=== PATIENT | male | born 1940 | race Caucasian/White ===

== ENCOUNTER → 2018-01-11 13:25 | Outpatient (POV) | payer MEDICARE, SELFPAY | PROVIDERS: Visit Provider Nurse Practitioner Acute Care | DX: Z00.00 Encounter for general adult medical examination without abnormal findings (principal) ==

== ENCOUNTER → 2018-01-14 14:56 | Outpatient (REF) | payer MEDICARE, SELFPAY | LOC: LAB 14:56 | PROVIDERS: Visit Provider Podiatrist | DX: B35.1 Tinea unguium (principal) | CPT/HCPCS: 87220 ==

== ENCOUNTER → 2018-01-15 17:13 | Outpatient (CLI) | payer MEDICARE, OTHER, SELFPAY ==
[2018-01-15] VITALS (12 sets, daily range): BP systolic 132–160; BP diastolic 75–87; PULSE 80–91; RESP 16–18; TEMP 36.3–37.3; O2SAT 94–96; BMI 19.9
[2018-01-15 22:54] LABS: Basophils % 0.3 % (0.1-2.0); Eosinophils % 0.7 % (0.1-12.0); Lymphocytes % 17.4 K/mm3 (10-50); Mean Platelet Volume 9.3 fl (7.4-10.4); Monocytes # 0.4 K/mm3 (0.1-1.0); Monocytes % 7.4 % (1.7-9.3); Neutrophils # 4.3 K/mm3 (1.8-7.8); Neutrophils % 74.3 % (37.0-80.0); Platelet Count 199 K/mm3 (142-424); Red Blood Count 2.89 M/mm3 (4.60-6.20); Red Cell Distribution Width 14.8 % (11.5-17.5); White Blood Count 5.8 K/mm3 (4.8-10.8)
[2018-01-15 22:56] LABS: Hematocrit 27.2 % (42.0-52.0)
[2018-01-15 23:04] LABS: Hemoglobin 9.2 g/dL (14.1-18.0)
== END ==
PROVIDERS: PCP Family Medicine; Visit Provider Family Medicine
DX: D50.9 Iron deficiency anemia, unspecified (principal); C34.91 Malignant neoplasm of unspecified part of right bronchus or lung; M05.79 Rheumatoid arthritis with rheumatoid factor of multiple sites without organ or systems involvement
CPT/HCPCS: 36415; 36430; 85014; 85018; 85025; 86850; P9016

== ENCOUNTER 2018-02-03 16:47 | Inpatient (IN) | payer MEDICARE, OTHER, SELFPAY ==
[2018-02-03 16:55] VITALS: BMI 18.4
--- NOTE | 2018-02-03 17:20 | XR_ITS ---
XR KUB CLINICAL INDICATION: ITS.REASON: abdominal pain ORDERING PHYSICIAN: Tyra Werner MD PATIENT AGE: 77 years COMPARISON: 09/02/2017 FINDINGS: Upright and supine views of the abdomen show gas loops of small and large bowel with scattered air-fluid levels. This is nonspecific and could be due to partial obstruction or ileus. There are multiple abdominal wall tacks. No acute bony anomalies. Atherosclerotic calcification is present in the aorta. There is chronic blunting of the right CP angle IMPRESSION: Abnormal bowel gas pattern consistent with either ileus or partial small bowel obstruction. Correlation with clinical parameters are needed
--- NOTE | 2018-02-03 17:25 | P.PN_ITS ---
Internal Medicine - PN: Subj *Date: 02/03/18 *Time: 17:22 Interval history: Mr. Ley is a 77yo male who presented to the office today with a 1 week history of abdominal pain, nausea, and decreased appetite. He had a low BP in the office and appeared dehydrated. He was admitted for rehydration, antiemetics, and a KUB. Exam I & O for Last 24 hours: Intake & Output 02/01/18 02/02/18 02/03/18 02/04/18 11:59 11:59 11:59 11:59 Weight 132 lb 6.4 oz - Constitutional Comments: Does not appear to feel well - *Routine Respiratory Exam Present: CTA bilaterally - *Routine Cardiovascular Exam Present: RRR - *Routine Abdominal Exam Present: soft, normoactive bowel sounds, tenderness (bilateral lower quadrants) - *Routine Extremities Exam Absent: edema Assessment and Plan (1) Hypotension Current visit: Yes Status: Acute Category: Medical Code(s): I95.9 - Hypotension, unspecified (2) Dehydration Current visit: Yes Status: Acute Category: Medical Code(s): E86.0 - Dehydration (3) Abdominal pain Current visit: Yes Status: Acute Category: Medical Code(s): R10.9 - Unspecified abdominal pain (4) Coronary arteriosclerosis Current visit: No Status: Chronic Category: Medical Code(s): I25.10 - Atherosclerotic heart disease of [place] coronary artery without angina pectoris (5) Hyperlipidemia Current visit: No Status: Chronic Qualifiers: Category: Medical Code(s): E78.5 - Hyperlipidemia, unspecified (6) Hypertensive heart disease Current visit: No Status: Chronic Qualifiers: Category: Medical Code(s): I11.9 - Hypertensive heart disease without heart failure (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
[2018-02-03 17:55] VITALS: BP 152/92; PULSE 85; RESP 18; TEMP 37; O2SAT 95
[2018-02-03 18:20] LABS: Basophils % 0.2 % (0.1-2.0); Eosinophils % 0.6 % (0.1-12.0); Hematocrit 32.9 % (42.0-52.0); Hemoglobin 10.3 g/dL (14.1-18.0); Lymphocytes # 0.8 K/mm3 (0.7-4.5); Lymphocytes % 10.9 K/mm3 (10-50); Mean Corpuscular HGB Conc 31.2 g/dL (31.8-35.4); Mean Corpuscular Hemoglobin 29.2 pg (27.0-31.2); Mean Corpuscular Volume 93.4 fl (80-94); Mean Platelet Volume 10.5 fl (7.4-10.4); Monocytes # 0.4 K/mm3 (0.1-1.0); Monocytes % 5.3 % (1.7-9.3); Neutrophils # 5.7 K/mm3 (1.8-7.8); Neutrophils % 82.9 % (37.0-80.0); Platelet Count 216 K/mm3 (142-424); Red Blood Count 3.52 M/mm3 (4.60-6.20); Red Cell Distribution Width 14.7 % (11.5-17.5); White Blood Count 6.9 K/mm3 (4.8-10.8)
[2018-02-03 18:32] LABS: Alanine Aminotransferase 11 U/L (12-78); Albumin Level 2.8 gm/dL (3.4-5.0); Albumin/Globulin Ratio 0.7 (1.1-1.8); Alkaline Phosphatase 108 U/L (46-116); Anion Gap 11.5 mEq/L (5-15); Aspartate Amino Transferase 10 U/L (15-37); Bilirubin,Total 0.7 mg/dL (0.2-1.0); Blood Urea Nitrogen 17 mg/dL (7-18); Carbon Dioxide 24 mmol/L (21.0-32.0); Chloride 94 mmol/L (98-107); Creatinine Clearance Estimated 33 mL/min (0-300); Creatinine,Serum 1.57 mg/dL (0.70-1.30); Estimated Glomerular Filt Rate 43 ml/min (>60); GFR (African American) 52 ML/MIN (>60); Globulin 3.9 gm/dl (1.3-3.2); Glucose 115 mg/dL (74-106); Potassium 4.5 mmoL/L (3.5-5.1); Sodium 125 mmol/L (136-145); Total Protein,Serum 6.7 gm/dL (6.4-8.2)
--- NOTE | 2018-02-03 19:01 | PC.NURSE ---
Report to be given to Karla Pierce RN
[2018-02-03 19:56] LABS: Microscopic, Urine URINE MICROSCOPIC (MICROSCOPIC)
[2018-02-03 20:00] VITALS: BP 137/85; PULSE 87; RESP 20; TEMP 37.1; O2SAT 96
[2018-02-03 20:05] LABS: Appearance,Urine CLEAR (Clear); Bilirubin,Urine Negative (Negative); Blood, Urine Negative (Negative); Color,Urine YELLOW (Yellow); Glucose,Urine (UA) Negative (Negative); Ketones,Urine Negative (Negative); Leukocyte Esterase,Urine Negative (Negative); Nitrate,Urine Negative (Negative); Protein,Urine Negative (Negative); Specific Gravity, Urine 1.015 (1.005-1.030); Urobilinogen,Urine 0.2 EU/dl (0.2)
[2018-02-03 20:26] VITALS: BMI 18.5
--- NOTE | 2018-02-03 21:01 | PC.NURSE ---
PT REFUSED ADMINISTRATION OF POTASSIUM, PT STATES I ONLY TAKE IT IN THE MORNING. WHAT IS MY POTASSIUM LEVEL RN EDUCATED PT THAT POTASSIUM LEVEL IS 4.5 AND WNL. PT STATED IF IS NORMAL, I WON'T TAKE IT TONIGHT, WE WILL SEE IN THE MORNING IF I SHOULD TAKE IT OR NOT. I WANT TO KEEP IT ON MY NORMAL SCHEDULE.
[2018-02-03 22:29] LABS: Bacteria,Urine Trace /lpf; Hyaline Casts,Urine Occasional #/lpf (0); Squamous Epithelial Cell,Urine Occasional #/hpf (0-5); WBC,Urine Occasional #/hpf (0-3)
--- NOTE | 2018-02-04 04:26 | PC.NURSE ---
NO COMPLAINTS STATED THIS SHIFT. RESTED WELL. TOLERATED CLEAR LIQUID DIET WELL. PT STATES I FEEL SO MUCH BETTER THAN WHEN I FIRST COME IN. VSS. WILL CONTINUE TO MONITOR.
[2018-02-04 05:18] VITALS: BP 159/90; PULSE 100; RESP 18; TEMP 36.6; O2SAT 94
[2018-02-04 06:59] LABS: Basophils % 0.2 % (0.1-2.0); Eosinophils # 0.1 K/mm3 (0.0-0.4); Hematocrit 28.4 % (42.0-52.0); Lymphocytes # 0.9 K/mm3 (0.7-4.5); Lymphocytes % 17.6 K/mm3 (10-50); Mean Corpuscular HGB Conc 31.2 g/dL (31.8-35.4); Mean Corpuscular Hemoglobin 29.4 pg (27.0-31.2); Mean Corpuscular Volume 94.2 fl (80-94); Mean Platelet Volume 9.9 fl (7.4-10.4); Monocytes # 0.4 K/mm3 (0.1-1.0); Neutrophils # 3.7 K/mm3 (1.8-7.8); Neutrophils % 74.1 % (37.0-80.0); Platelet Count 173 K/mm3 (142-424); Red Blood Count 3.01 M/mm3 (4.60-6.20); Red Cell Distribution Width 14.8 % (11.5-17.5)
[2018-02-04 07:14] LABS: Anion Gap 9.9 mEq/L (5-15); Blood Urea Nitrogen 13 mg/dL (7-18); Carbon Dioxide 24 mmol/L (21.0-32.0); Chloride 105 mmol/L (98-107); Creatinine Clearance Estimated 41 mL/min (0-300); Creatinine,Serum 1.25 mg/dL (0.70-1.30); Estimated Glomerular Filt Rate 56 ml/min (>60); GFR (African American) 68 ML/MIN (>60); Glucose 85 mg/dL (74-106); Potassium 3.9 mmoL/L (3.5-5.1); Sodium 135 mmol/L (136-145)
--- NOTE | 2018-02-04 07:23 | HMH.PHAVTE ---
[facility] VTE Monitoring - Patient Demographics Admission date: 02/03/18 Report Date: 02/04/18 Time: 07:24 Allergies/Adverse Reactions: Patient Allergies No Known Allergies Allergy (Verified 12/22/17 10:12) Height: 1.8 m Weight: 59.988 kg Patient Problems: Current Active Problems Hypotension (Acute) Dehydration (Acute) Abdominal pain (Acute) - VTE Risk Labs: VTE Related Lab Results Hgb 10.3 g/dL (14.1-18.0) L 02/03/18 18:10 Hct 28.4 % (42.0-52.0) L 02/04/18 06:30 Plt Count 173 K/mm3 (142-424) 02/04/18 06:30 BUN 13 mg/dL (7-18) 02/04/18 06:30 Creatinine 1.25 mg/dL (0.70-1.30) D 02/04/18 06:30 Estimated Creat Clear 41 mL/min (0-300) 02/04/18 06:30 Was VTE Risk Assessment Performed: Yes VTE Score: 4 VTE Risk Level: Low Risk - Prophylaxis VTE Prophylaxis Ordered?: Yes Types of VTE Prophylaxis: TEDS Knee High Location of Applied Device: Bilateral Lower Extremeties - VTE Diagnosis Confirmed Treatment or plan recommended: Continue Current Treatment
[2018-02-04 07:41] VITALS: BP 162/75; PULSE 109; RESP 20; TEMP 37.2; O2SAT 95
--- NOTE | 2018-02-04 08:19 | HMH.ACPN2 ---
Internal Medicine - PN: Subj *Date: 02/04/18 *Time: 08:19 Interval history: Patient states he feels much better today. He still has some lower abdominal pain. He urinated all night with the IV fluids. Weakness has improved. Exam Vital signs and Labs for Last 24 Hours: Temp Pulse Resp BP Pulse Ox 99.0 F 109 H 20 162/75 95 02/04/18 07:41 02/04/18 07:41 02/04/18 07:41 02/04/18 07:41 02/04/18 07:41 Laboratory Results - last 24 hr 02/03/18 18:10: WBC 6.9, RBC 3.52 L, Hgb 10.3 L, Hct 32.9 L, MCV 93.4, MCH 29.2, MCHC 31.2 L, RDW 14.7, Plt Count 216, MPV 10.5 H, Neut % (Auto) 82.9 H, Lymph % (Auto) 10.9, [place] % (Auto) 5.3, Eos % (Auto) 0.6, Baso % (Auto) 0.2, Neut # (Auto) 5.7, Lymph # (Auto) 0.8, [place] # (Auto) 0.4, Eos # (Auto) 0.0, Baso # (Auto) 0.0 02/03/18 18:10: Sodium 125 L, Potassium 4.5, Chloride 94 L, Carbon Dioxide 24, Anion Gap 11.5, BUN 17, Creatinine 1.57 H, Estimated Creat Clear 33, Estimated GFR 43 L, Est GFR ( Amer) 52 L, Glucose 115 H, Calcium 9.0, Total Bilirubin 0.7, AST 10 L, ALT 11 L, Alkaline Phosphatase 108, Total Protein 6.7, Albumin 2.8 L, Globulin 3.9 H, Albumin/Globulin Ratio 0.7 L 02/03/18 19:50: Urine Color Yellow, Urine Appearance Clear, Urine pH 6.0, Ur Specific [place] 1.015, Urine Protein Negative, Urine Glucose (UA) Negative, Urine Ketones Negative, Urine Blood Negative, Urine Nitrate Negative, Urine Bilirubin Negative, Urine Urobilinogen 0.2, Ur Leukocyte Esterase Negative, Urine RBC None, Urine WBC Occasional, Ur Squamous Epith Cells Occasional, Urine Bacteria Trace, Hyaline Casts Occasional 02/04/18 06:30: WBC 5.0 D, RBC 3.01 L, Hgb 9.0 L D, Hct 28.4 L, MCV 94.2 H, MCH 29.4, MCHC 31.2 L, RDW 14.8, Plt Count 173, MPV 9.9, Neut % (Auto) 74.1, Lymph % (Auto) 17.6, [place] % (Auto) 7.0, Eos % (Auto) 1.0, Baso % (Auto) 0.2, Neut # (Auto) 3.7, Lymph # (Auto) 0.9, [place] # (Auto) 0.4, Eos # (Auto) 0.1, Baso # (Auto) 0.0 02/04/18 06:30: Sodium 135 L, Potassium 3.9, Chloride 105, Carbon Dioxide 24, Anion Gap 9.9, BUN 13, Creatinine 1.25 D, Estimated Creat Clear 41, Estimated GFR 56 L, Est GFR ( Amer) 68 D, Glucose 85 D I & O for Last 24 hours: Intake & Output 02/01/18 02/02/18 02/03/18 02/04/18 11:59 11:59 11:59 11:59 Intake Total 2823 / 2823 Output Total 3150 / 3150 Balance -327 / -327 Weight 132 lb 4 oz Radiology Reports for the Last 24 Hours: KUB - Abnormal bowel gas pattern consistent with either ileus or partial small bowel obstruction. Correlation with clinical parameters are needed - Constitutional no acute distress - *Routine Respiratory Exam Present: CTA bilaterally - *Routine Cardiovascular Exam Present: RRR - *Routine Abdominal Exam Present: soft, normoactive bowel sounds, tenderness (lower abdomen) - *Routine Extremities Exam Absent: edema Assessment and Plan (1) Partial small bowel obstruction Current visit: Yes Status: Acute Category: Medical Code(s): K56.600 - Partial intestinal obstruction, unspecified as to cause (2) Hypotension Current visit: Yes Status: Acute Category: Medical Code(s): I95.9 - Hypotension, unspecified (3) Dehydration Current visit: Yes Status: Acute Category: Medical Code(s): E86.0 - Dehydration (4) Abdominal pain Current visit: Yes Status: Acute Category: Medical Code(s): R10.9 - Unspecified abdominal pain (5) Coronary arteriosclerosis Current visit: No Status: Chronic Category: Medical Code(s): I25.10 - Atherosclerotic heart disease of [place] coronary artery without angina pectoris (6) Hyperlipidemia Current visit: No Status: Chronic Qualifiers: Category: Medical Code(s): E78.5 - Hyperlipidemia, unspecified (7) Hypertensive heart disease Current visit: No Status: Chronic Qualifiers: Category: Medical Code(s): I11.9 - Hypertensive heart disease without heart failure (8) Malignant carcinoid tumor of lung Current visit: No Status
--- NOTE | 2018-02-04 08:22 | P.PN_ITS ---
Internal Medicine - PN: Subj *Date: 02/04/18 *Time: 08:19 Interval history: Patient states he feels much better today. He still has some lower abdominal pain. He urinated all night with the IV fluids. Weakness has improved. Exam Vital signs and Labs for Last 24 Hours: Temp Pulse Resp BP Pulse Ox 99.0 F 109 H 20 162/75 95 02/04/18 07:41 02/04/18 07:41 02/04/18 07:41 02/04/18 07:41 02/04/18 07:41 Laboratory Results - last 24 hr 02/03/18 18:10: WBC 6.9, RBC 3.52 L, Hgb 10.3 L, Hct 32.9 L, MCV 93.4, MCH 29.2 , MCHC 31.2 L, RDW 14.7, Plt Count 216, MPV 10.5 H, Neut % (Auto) 82.9 H, Lymph % (Auto) 10.9, [place] % (Auto) 5.3, Eos % (Auto) 0.6, Baso % (Auto) 0.2, Neut # ( Auto) 5.7, Lymph # (Auto) 0.8, [place] # (Auto) 0.4, Eos # (Auto) 0.0, Baso # (Auto ) 0.0 02/03/18 18:10: Sodium 125 L, Potassium 4.5, Chloride 94 L, Carbon Dioxide 24, Anion Gap 11.5, BUN 17, Creatinine 1.57 H, Estimated Creat Clear 33, Estimated GFR 43 L, Est GFR ( Amer) 52 L, Glucose 115 H, Calcium 9.0, Total Bilirubin 0.7, AST 10 L, ALT 11 L, Alkaline Phosphatase 108, Total Protein 6.7, Albumin 2.8 L, Globulin 3.9 H, Albumin/Globulin Ratio 0.7 L 02/03/18 19:50: Urine Color Yellow, Urine Appearance Clear, Urine pH 6.0, Ur Specific [place] 1.015, Urine Protein Negative, Urine Glucose (UA) Negative, Urine Ketones Negative, Urine Blood Negative, Urine Nitrate Negative, Urine Bilirubin Negative, Urine Urobilinogen 0.2, Ur Leukocyte Esterase Negative, Urine RBC None, Urine WBC Occasional, Ur Squamous Epith Cells Occasional, Urine Bacteria Trace, Hyaline Casts Occasional 02/04/18 06:30: WBC 5.0 D, RBC 3.01 L, Hgb 9.0 L D, Hct 28.4 L, MCV 94.2 H, MCH 29.4, MCHC 31.2 L, RDW 14.8, Plt Count 173, MPV 9.9, Neut % (Auto) 74.1, Lymph % (Auto) 17.6, [place] % (Auto) 7.0, Eos % (Auto) 1.0, Baso % (Auto) 0.2, Neut # (Auto) 3.7, Lymph # (Auto) 0.9, [place] # (Auto) 0.4, Eos # (Auto) 0.1, Baso # (Auto) 0.0 02/04/18 06:30: Sodium 135 L, Potassium 3.9, Chloride 105, Carbon Dioxide 24, Anion Gap 9.9, BUN 13, Creatinine 1.25 D, Estimated Creat Clear 41, Estimated GFR 56 L, Est GFR ( Amer) 68 D, Glucose 85 D I & O for Last 24 hours: Intake & Output 02/01/18 02/02/18 02/03/18 02/04/18 11:59 11:59 11:59 11:59 Intake Total 2823 / 2823 Output Total 3150 / 3150 Balance -327 / -327 Weight 132 lb 4 oz Radiology Reports for the Last 24 Hours: KUB - Abnormal bowel gas pattern consistent with either ileus or partial small bowel obstruction. Correlation with clinical parameters are needed - Constitutional no acute distress - *Routine Respiratory Exam Present: CTA bilaterally - *Routine Cardiovascular Exam Present: RRR - *Routine Abdominal Exam Present: soft, normoactive bowel sounds, tenderness (lower abdomen) - *Routine Extremities Exam Absent: edema Assessment and Plan (1) Partial small bowel obstruction Current visit: Yes Status: Acute Category: Medical Code(s): K56.600 - Partial intestinal obstruction, unspecified as to cause (2) Hypotension Current visit: Yes Status: Acute Category: Medical Code(s): I95.9 - Hypotension, unspecified (3) Dehydration Current visit: Yes Status: Acute Category: Medical Code(s): E86.0 - Dehydration (4) Abdominal pain Current visit: Yes Status: Acute Category: Medical Code(s): R10.9 - Unspecified abdominal pain (5) Coronary arteriosclerosis Current visit: No Status: Chronic Category: Medical Code(s): I25.10 - Atherosclero
[2018-02-04 12:48] LABS: Reticulocyte % (Auto) 1.2 % (0.9-3.2)
[2018-02-04 15:38] VITALS: BP 135/84; PULSE 90; RESP 18; TEMP 37.2; O2SAT 96
--- NOTE | 2018-02-04 16:03 | SW/DCPLANNER ---
Spoke with this patient this afternoon regarding discharge plans. Patient stated that he lives at home alone...still drives...and still cooks for himself. Patient stated that he did not feel as if he has any needs at this time. I will follow up with patient tomorrow to assist with any needs/new orders.
--- NOTE | 2018-02-04 19:30 | PC.NURSE ---
PATIENT HAS HAD DIARRHEA TODAY. PO POTASSIUM GIVEN THIS MORNING. PATIENT HAS TOLERATED CLEAR LIQUID DIET AND IS ASKING FOR MORE SOLID FOODS. VITAL SIGNS STABLE, WILL CONTINUE TO MONITOR, REPORT GIVEN TO MAURICIO JAUREGUI.
[2018-02-04 20:00] VITALS: BP 155/75; PULSE 61; RESP 18; TEMP 37.1; O2SAT 95
[2018-02-04 20:25] VITALS: O2SAT 95
--- NOTE | 2018-02-05 03:35 | PC.NURSE ---
no changes noted from previous assessment, pt has rested well this shift, pt c/o pain in the abdomen rating the pain 3/10, pt states gas pains were relieved, pt has had several episodes of diarrhea this shift, bowel sounds are active, breath sounds are clear to auscultation, no acute distress noted at this time, call light in reach, will continue to monitor.
[2018-02-05 04:00] VITALS: BP 166/91; PULSE 88; RESP 18; TEMP 37.1; O2SAT 94
[2018-02-05 07:46] VITALS: BP 139/83; PULSE 80; RESP 20; TEMP 36.6; O2SAT 96
--- NOTE | 2018-02-05 08:13 | XR_ITS ---
XR chest 2V COMPARISON: PA and lateral chest 04/29/2017 HISTORY: Rales TECHNIQUE: PA and lateral chest FINDINGS: Again noted is overall volume loss right hemithorax with prominent pleural and parenchymal scarring right middle lower chest. There was a cavitating lesion seen at adjacent to the chest wall on the previous study March 2017 which has shown interval resolution other than residual pleural and parenchymal scarring. There are somewhat more prominent irregular opacities at the right lung base than on the previous chest film possibly due to chronic scarring but it would be difficult to exclude superimposed acute infiltrate. The left lung mckenna well expanded and clear. There is aortic tortuosity but no cardiomegaly. There is a central line seen entering the right subclavian vein with the tip at the junction of the SVC with the right atrium. IMPRESSION: Prominent chronic pleural-parenchymal scarring right lower hemithorax, difficult to exclude a superimposed acute pneumonic infiltrate and possibly follow-up films will be helpful if symptoms persist
--- NOTE | 2018-02-05 08:13 | XR_ITS ---
XR KUB COMPARISON: KUB and upright abdomen 02/03/2018 HISTORY: Follow-up ileus versus early small bowel obstruction TECHNIQUE: KUB FINDINGS: There is increased amount of large and small bowel gas in a nonobstructive pattern showing slight interval improvement from the previous films of 02/03/2018. I believe this is most consistent with mild ileus. Is no evidence of free air. Again noted are the surgical sutures overlying the lower mid abdomen possibly from previous ventral hernia repair along with arteriosclerotic calcification of the abdominal aorta. IMPRESSION: Mildly abnormal gas pattern but showing interval improvement from the previous study likely due to a mild ileus
--- NOTE | 2018-02-05 08:17 | HMH.ACPN2 ---
<Jessie Adamson - Last Filed: 02/05/18 08:17> Internal Medicine - PN: Subj *Date: 02/05/18 *Time: 08:17 Interval history: Pt states he has a sore throat this am. He would like some Chloraseptic Welcome. He states he urinated and had diarrhea throughout the night. Has been tolerating clear liquids well. He has developed a cough. Exam Vital signs and Labs for Last 24 Hours: Temp Pulse Resp BP Pulse Ox 97.8 F 80 20 139/83 96 02/05/18 07:46 02/05/18 07:46 02/05/18 07:46 02/05/18 07:46 02/05/18 07:46 Laboratory Results - last 24 hr 02/04/18 10:48: Retic Count (auto) 1.2 I & O for Last 24 hours: Intake & Output 02/02/18 02/03/18 02/04/18 02/05/18 11:59 11:59 11:59 11:59 Intake Total 2823 / 2823 2810 / 2810 Output Total 3150 / 3150 1775 / 1775 Balance -327 / -327 1035 / 1035 Weight 132 lb 4 oz - Constitutional no acute distress - *Routine Respiratory Exam Present: rales (bilaterally) - *Routine Cardiovascular Exam Present: RRR - *Routine Abdominal Exam Present: soft, normoactive bowel sounds, tenderness (in the left lower abdomen - improved) - *Routine Extremities Exam Absent: edema Assessment and Plan (1) Partial small bowel obstruction Current visit: Yes Status: Acute Category: Medical Code(s): K56.600 - Partial intestinal obstruction, unspecified as to cause (2) Hypotension Current visit: Yes Status: Acute Category: Medical Code(s): I95.9 - Hypotension, unspecified (3) Dehydration Current visit: Yes Status: Acute Category: Medical Code(s): E86.0 - Dehydration (4) Abdominal pain Current visit: Yes Status: Acute Category: Medical Code(s): R10.9 - Unspecified abdominal pain (5) Coronary arteriosclerosis Current visit: No Status: Chronic Category: Medical Code(s): I25.10 - Atherosclerotic heart disease of [place] coronary artery without angina pectoris (6) Hyperlipidemia Current visit: No Status: Chronic Category: Medical Code(s): E78.5 - Hyperlipidemia, unspecified (7) Hypertensive heart disease Current visit: No Status: Chronic Category: Medical Code(s): I11.9 - Hypertensive heart disease without heart failure (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 Will get a chest x-ray due to rales in the lung bases and a repeat KUB to evaluate small bowel obstruction. <Cory Bueno - Last Filed: 02/05/18 08:33> Internal Medicine - PN: Subj *Date: 02/05/18 *Time: 08:32 Exam Vital signs and Labs for Last 24 Hours: Temp Pulse Resp BP Pulse Ox 97.8 F 80 20 139/83 96 02/05/18 07:46 02/05/18 07:46 02/05/18 07:46 02/05/18 07:46 02/05/18 07:46 Laboratory Results - last 24 hr 02/04/18 10:48: Retic Count (auto) 1.2 I & O for Last 24 hours: Intake & Output 02/02/18 02/03/18 02/04/18 02/05/18 11:59 11:59 11:59 11:59 Intake Total 2823 / 2823 2810 / 2810 Output Total 3150 / 3150 1775 / 1775 Balance -327 / -327 1035 / 1035 Weight 132 lb 4 oz Assessment and Plan (1) Partial small bowel obstruction Current visit: Yes Status: Acute Category: Medical Code(s): K56.600 - Partial intestinal obstruction, unspecified as to cause (2) Hypotension Current visit: Yes Status: Acute Category: Medical Code(s): I95.9 - Hypotension, unspecified (3) Dehydration Current visit: Yes Status: Acute Category: Medical Code(s): E86.0 - Dehydration (4) Abdominal pain Current visit: Yes Status: Acute Category: Medical Code(s): R10.9 - Unspecified abdom
[2018-02-05 12:41] VITALS: BMI 18.5
[2018-02-05 16:00] VITALS: BP 147/76; PULSE 83; RESP 20; TEMP 36.7; O2SAT 95
--- NOTE | 2018-02-05 18:17 | PC.NURSE ---
Pt has tolerated well this shift, VS stable. Pt's only complaint this shift was headache, MD notified and new order of acetaminophen 500mg PO q6 hours PRN was received. Pt was given a dose of acetaminophen and tolerated well, stating that he no longer had a headache on reassessment. Pt has had family at bedside this shift. Pt is in bed, call light within reach, will continue to monitor.
[2018-02-05 19:23] LABS: Vitamin B12 434 pg/mL (232-1245)
[2018-02-05 19:50] VITALS: BP 153/83; PULSE 78; RESP 18; TEMP 36.8; O2SAT 94
[2018-02-05 20:30] VITALS: O2SAT 94
[2018-02-06] VITALS: BP 149/83; PULSE 86; RESP 20; TEMP 37; O2SAT 94
--- NOTE | 2018-02-06 02:47 | PC.NURSE ---
no changes noted from previous assessment, pt has rested well this shift, pt c/o sore throat and a light non productive cough, chloraseptic spray alleviates symptoms, pt states diarrhea episodes decreased today, bowel sounds remain hyperactive, pt denies pain, breath sounds are clear to auscultation, no acute distress noted at this time, call light in reach, will continue to monitor.
--- NOTE | 2018-02-06 07:04 | PC.NURSE ---
report given to Tyler Treadwell RN
[2018-02-06 07:12] LABS: Basophils % 0.3 % (0.1-2.0); Eosinophils # 0.2 K/mm3 (0.0-0.4); Eosinophils % 3.2 % (0.1-12.0); Hematocrit 26.2 % (42.0-52.0); Hemoglobin 8.3 g/dL (14.1-18.0); Lymphocytes # 0.8 K/mm3 (0.7-4.5); Lymphocytes % 16.3 K/mm3 (10-50); Mean Corpuscular HGB Conc 31.8 g/dL (31.8-35.4); Mean Corpuscular Hemoglobin 29.7 pg (27.0-31.2); Mean Corpuscular Volume 93.5 fl (80-94); Mean Platelet Volume 9.7 fl (7.4-10.4); Monocytes # 0.3 K/mm3 (0.1-1.0); Monocytes % 5.6 % (1.7-9.3); Neutrophils # 3.5 K/mm3 (1.8-7.8); Neutrophils % 74.6 % (37.0-80.0); Platelet Count 157 K/mm3 (142-424); Red Cell Distribution Width 14.9 % (11.5-17.5); White Blood Count 4.7 K/mm3 (4.8-10.8)
[2018-02-06 07:17] LABS: Anion Gap 7.8 mEq/L (5-15); Blood Urea Nitrogen 9 mg/dL (7-18); Carbon Dioxide 26 mmol/L (21.0-32.0); Chloride 104 mmol/L (98-107); Creatinine Clearance Estimated 47 mL/min (0-300); Creatinine,Serum 1.09 mg/dL (0.70-1.30); Estimated Glomerular Filt Rate 65 ml/min (>60); GFR (African American) 79 ML/MIN (>60); Glucose 92 mg/dL (74-106); Potassium 3.8 mmoL/L (3.5-5.1); Sodium 134 mmol/L (136-145)
[2018-02-06 07:43] VITALS: BP 157/90; PULSE 96; RESP 20; TEMP 37.1; O2SAT 97
[2018-02-06 08:00] VITALS: O2SAT 97
--- NOTE | 2018-02-06 08:14 | HMH.ACPN2 ---
Internal Medicine - PN: Subj *Date: 02/06/18 *Time: 08:14 Interval history: Patient feels better today, slept well, ready to go home. Exam Vital signs and Labs for Last 24 Hours: Temp Pulse Resp BP Pulse Ox 98.7 F 96 H 20 157/90 97 02/06/18 07:43 02/06/18 07:43 02/06/18 07:43 02/06/18 07:43 02/06/18 07:43 Laboratory Results - last 24 hr 02/04/18 10:48: Vitamin B12 434 02/06/18 06:30: WBC 4.7 L, RBC 2.80 L, Hgb 8.3 L, Hct 26.2 L, MCV 93.5, MCH 29.7, MCHC 31.8, RDW 14.9, Plt Count 157, MPV 9.7, Neut % (Auto) 74.6, Lymph % (Auto) 16.3, [place] % (Auto) 5.6, Eos % (Auto) 3.2, Baso % (Auto) 0.3, Neut # (Auto) 3.5, Lymph # (Auto) 0.8, [place] # (Auto) 0.3, Eos # (Auto) 0.2, Baso # (Auto) 0.0 02/06/18 06:30: Sodium 134 L, Potassium 3.8, Chloride 104, Carbon Dioxide 26, Anion Gap 7.8, BUN 9 D, Creatinine 1.09, Estimated Creat Clear 47, Estimated GFR 65, Est GFR ( Amer) 79, Glucose 92 Vital Signs Temp Pulse Resp BP Pulse Ox 02/06/18 07:43 98.7 F 96 H 20 157/90 97 02/06/18 00:00 98.6 F 86 20 149/83 94 L 02/05/18 20:30 94 L 02/05/18 19:50 98.2 F 78 18 153/83 94 L 02/05/18 16:00 98.1 F 83 20 147/76 95 Intake and Output 02/05/18 02/06/18 02/06/18 19:59 03:59 11:59 Intake Total 1276 / 1276 Output Total 1000 / 1000 300 / 300 600 / 600 Balance 276 / 276 -300 / -300 -600 / -600 Intake: Intake, Oral Amount 600 / 600 Intake, Total IV Amount 676 / 676 0.9 % Sodium Chloride 1,000 ml 676 / 676 @ 75 mls/hr IV .[id number] [facility] Rx# :[id number] Output: Output, Urine Amount 1000 / 1000 300 / 300 600 / 600 Other: Number of Voids 5 Number of Bowel Movements 1 Weight 132 lb 4.014 oz Patient Weight 02/06/18 11:59 Weight 132 lb 4.014 oz I & O for Last 24 hours: Intake & Output 02/03/18 02/04/18 02/05/18 02/06/18 11:59 11:59 11:59 11:59 Intake Total 2823 / 2823 2810 / 2810 1276 / 1276 Output Total 3150 / 3150 1775 / 1775 1900 / 1900 Balance -327 / -327 1035 / 1035 -624 / -624 Weight 132 lb 4 oz 132 lb 4.014 oz - Constitutional no acute distress - *Routine HEENT Exam ENT: Present: mucous membranes moist - *Routine Respiratory Exam Present: CTA bilaterally - *Routine Cardiovascular Exam Present: RRR - *Routine Abdominal Exam Present: soft, normoactive bowel sounds. Absent: tenderness, distended - *Routine Extremities Exam Absent: cyanosis, clubbing, edema Assessment and Plan (1) Partial small bowel obstruction Current visit: Yes Status: Resolved Category: Medical Code(s): K56.600 - Partial intestinal obstruction, unspecified as to cause (2) Hypotension Current visit: Yes Status: Resolved Category: Medical Code(s): I95.9 - Hypotension, unspecified (3) Dehydration Current visit: Yes Status: Resolved Category: Medical Code(s): E86.0 - Dehydration (4) Abdominal pain Current visit: Yes Status: Resolved Category: Medical Code(s): R10.9 - Unspecified abdominal pain (5) Coronary arteriosclerosis Current visit: No Status: Chronic Category: Medical Code(s): I25.10 - Atherosclerotic heart disease of [place] coronary artery without angina pectoris (6) Hyperlipidemia Current visit: No Status: Chronic Qualifiers: Category: Medical Code(s): E78.5 - Hyperlipidemia, unspecified (7) Hypertensive heart disease Current visit: No Status: Chronic Qualifiers: Category: Medical Code(s): I11.9 - Hypertensive heart disease without heart failure (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
--- NOTE | 2018-02-06 08:18 | P.PN_ITS ---
Internal Medicine - PN: Subj *Date: 02/06/18 *Time: 08:14 Interval history: Patient feels better today, slept well, ready to go home. Exam Vital signs and Labs for Last 24 Hours: Temp Pulse Resp BP Pulse Ox 98.7 F 96 H 20 157/90 97 02/06/18 07:43 02/06/18 07:43 02/06/18 07:43 02/06/18 07:43 02/06/18 07:43 Laboratory Results - last 24 hr 02/04/18 10:48: Vitamin B12 434 02/06/18 06:30: WBC 4.7 L, RBC 2.80 L, Hgb 8.3 L, Hct 26.2 L, MCV 93.5, MCH 29.7 , MCHC 31.8, RDW 14.9, Plt Count 157, MPV 9.7, Neut % (Auto) 74.6, Lymph % (Auto ) 16.3, [place] % (Auto) 5.6, Eos % (Auto) 3.2, Baso % (Auto) 0.3, Neut # (Auto) 3.5, Lymph # (Auto) 0.8, [place] # (Auto) 0.3, Eos # (Auto) 0.2, Baso # (Auto) 0.0 02/06/18 06:30: Sodium 134 L, Potassium 3.8, Chloride 104, Carbon Dioxide 26, Anion Gap 7.8, BUN 9 D, Creatinine 1.09, Estimated Creat Clear 47, Estimated GFR 65, Est GFR ( Amer) 79, Glucose 92 Vital Signs Temp Pulse Resp BP Pulse Ox 02/06/18 07:43 98.7 F 96 H 20 157/90 97 02/06/18 00:00 98.6 F 86 20 149/83 94 L 02/05/18 20:30 94 L 02/05/18 19:50 98.2 F 78 18 153/83 94 L 02/05/18 16:00 98.1 F 83 20 147/76 95 Intake and Output 02/05/18 02/06/18 02/06/18 19:59 03:59 11:59 Intake Total 1276 / 1276 Output Total 1000 / 1000 300 / 300 600 / 600 Balance 276 / 276 -300 / -300 -600 / -600 Intake: Intake, Oral Amount 600 / 600 Intake, Total IV Amount 676 / 676 0.9 % Sodium Chloride 1,000 ml 676 / 676 @ 75 mls/hr IV .[id number] [facility] Rx# :[id number] Output: Output, Urine Amount 1000 / 1000 300 / 300 600 / 600 Other: Number of Voids 5 Number of Bowel Movements 1 Weight 132 lb 4.014 oz Patient Weight 02/06/18 11:59 Weight 132 lb 4.014 oz I & O for Last 24 hours: Intake & Output 02/03/18 02/04/18 02/05/18 02/06/18 11:59 11:59 11:59 11:59 Intake Total 2823 / 2823 2810 / 2810 1276 / 1276 Output Total 3150 / 3150 1775 / 1775 1900 / 1900 Balance -327 / -327 1035 / 1035 -624 / -624 Weight 132 lb 4 oz 132 lb 4.014 oz - Constitutional no acute distress - *Routine HEENT Exam ENT: Present: mucous membranes moist - *Routine Respiratory Exam Present: CTA bilaterally - *Routine Cardiovascular Exam Present: RRR - *Routine Abdominal Exam Present: soft, normoactive bowel sounds. Absent: tenderness, distended - *Routine Extremities Exam Absent: cyanosis, clubbing, edema Assessment and Plan (1) Partial small bowel obstruction Current visit: Yes Status: Resolved Category: Medical Code(s): K56.600 - Partial intestinal obstruction, unspecified as to cause (2) Hypotension Current visit: Yes Status: Resolved Category: Medical Code(s): I95.9 - Hypotension, unspecified (3) Dehydration Current visit: Yes Status: Resolved Category: Medical Code(s): E86.0 - Dehydration (4) Abdominal pain Current visit: Yes Status: Resolved Category: Medical Code(s): R10.9 - Unspecified abdominal pain (5) Coronary arteriosclerosis Current visit: No Status: Chronic Category: Medical Code(s): I25.10 - Atherosclerotic heart disease of [place] coronary artery without angina pect
--- NOTE | 2018-02-07 10:40 | HMH.DCSUM ---
General - General Admission date: 02/03/18 Discharge date: 02/06/18 HPI HPI: Mr. Ley is a 77yo male who presented to the office today with a 1 week history of abdominal pain, nausea, and decreased appetite. He had a low BP in the office and appeared dehydrated. He was admitted for rehydration, antiemetics, and a KUB. Hospital Course Hospital Course: He was admitted and started on IVF's and antiemetics. A KUB was ordered showing an ileus vs a partial small bowel obstruction. He was started on clear liquids. His dehydration improved with hydration. He did develop a cough and some rales in the lung bases. A repeat KUB as well as a CXR was ordered. His CXR showed prominent chronic pleural-parenchymal scarring in the right lower hemithorax. His KUB showed improvement in his bowel gas pattern. His diet was advanced. He tolerated this well. His H&H did drop and it was felt this was dilutional. He was stable to be discharged and will need close f/u in the office and a repeat H &H. Objective Vital signs: Temp Pulse Resp BP Pulse Ox 98.7 F 96 H 20 157/90 97 02/06/18 07:43 02/06/18 07:43 02/06/18 07:43 02/06/18 07:43 02/06/18 08:00 Narrative: - Constitutional Comments: Does not appear to feel well - *Routine Respiratory Exam Present: CTA bilaterally - *Routine Cardiovascular Exam Present: RRR - *Routine Abdominal Exam Present: soft, normoactive bowel sounds, tenderness (bilateral lower quadrants) - *Routine Extremities Exam Absent: edema DS: Diagnosis - Discharge Diagnosis (1) Partial small bowel obstruction Status: Resolved (2) Hypotension Status: Resolved (3) Dehydration Status: Resolved (4) Abdominal pain Status: Resolved (5) Coronary arteriosclerosis Status: Chronic (6) Hyperlipidemia Status: Chronic (7) Hypertensive heart disease Status: Chronic (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 (9) Rales Status: Resolved (10) Anemia Status: Acute Discharge Plan - Patient Discharge Instructions ACTIVITY: Continue current activity DIET: continue same diet Patient Instructions: High-Calorie, High-Protein Diet, DI for Dehydration -- Adult, DI for Abdominal Pain-Adult, DI for Hypotension - Follow up Plan Follow up with: Tyra Werner MD [Primary Care Provider] - 02/10/18 Disposition: Home, Self-Half-Way Medications: Home Medications Medication Instructions Recorded Confirmed Type cholecalciferol (vitamin D3) 1,000 1,000 unit PO DAILY 12/18/17 02/04/18 History unit capsule ferrous gluconate 324 mg (36 mg 324 mg PO BID tab 12/18/17 02/03/18 History iron) tablet fluticasone 50 mcg/actuation nasal 50 mcg INTRANASAL DAILY 12/18/17 02/04/18 History spray,suspension hydroxychloroquine 200 mg tablet 200 mg PO DAILY 12/18/17 02/04/18 History leflunomide 20 mg tablet 20 mg PO DAILY 12/18/17 02/04/18 History loratadine 10 mg capsule 10 mg PO DAILY 12/18/17 02/04/18 History megestrol 400 mg/10 mL (10 mL) 800 mg PO DAILY ml 12/18/17 02/04/18 History oral suspension metoprolol succinate ER 100 mg 100 mg PO DAILY tab 12/18/17 02/04/18 History tablet,extended release 24 hr omeprazole 20 mg capsule,delayed 20 mg PO BID 12/18/17 02/04/18 History release pravastatin 40 mg tablet 40 mg PO HS 12/18/17 02/04/18 History terazosin 5 mg capsule 5 mg PO HS 12/18/17 02/04/18 History aspirin 81 mg tablet,delayed 81 mg PO DAILY 12/22/17 02/04/18 History release Finasteride [Proscar 5mg Tablet] 5 mg PO HS 02/04/18 02/04/18 History Metoclopramide HCl [Reglan 5mg 5 mg PO TIDP PRN 02/04/18 02/04/18 History Tablet] Montelukast Sodium [Montelukast 10 mg PO HS 02/04/18 02/04/18 History 10mg Tab] Potassium Chloride [Pot Chlor 20 20 meq PO DAILY 02/04/18 02/04/18 History mEq Tab] dilTIAZem HCl [Cartia Xt] 120 mg PO DAILY 02/04/18 02/04/18 History Prescriptions/Medication Reconcil
--- NOTE | 2018-02-07 10:45 | P.DS_ITS ---
General - General Admission date: 02/03/18 Discharge date: 02/06/18 HPI HPI: Mr. Ley is a 77yo male who presented to the office today with a 1 week history of abdominal pain, nausea, and decreased appetite. He had a low BP in the office and appeared dehydrated. He was admitted for rehydration, antiemetics, and a KUB. Hospital Course Hospital Course: He was admitted and started on IVF's and antiemetics. A KUB was ordered showing an ileus vs a partial small bowel obstruction. He was started on clear liquids. His dehydration improved with hydration. He did develop a cough and some rales in the lung bases. A repeat KUB as well as a CXR was ordered. His CXR showed prominent chronic pleural-parenchymal scarring in the right lower hemithorax. His KUB showed improvement in his bowel gas pattern. His diet was advanced. He tolerated this well. His H&H did drop and it was felt this was dilutional. He was stable to be discharged and will need close f/u in the office and a repeat H &H. Objective Vital signs: Temp Pulse Resp BP Pulse Ox 98.7 F 96 H 20 157/90 97 02/06/18 07:43 02/06/18 07:43 02/06/18 07:43 02/06/18 07:43 02/06/18 08:00 Narrative: - Constitutional Comments: Does not appear to feel well - *Routine Respiratory Exam Present: CTA bilaterally - *Routine Cardiovascular Exam Present: RRR - *Routine Abdominal Exam Present: soft, normoactive bowel sounds, tenderness (bilateral lower quadrants) - *Routine Extremities Exam Absent: edema DS: Diagnosis - Discharge Diagnosis (1) Partial small bowel obstruction Status: Resolved (2) Hypotension Status: Resolved (3) Dehydration Status: Resolved (4) Abdominal pain Status: Resolved (5) Coronary arteriosclerosis Status: Chronic (6) Hyperlipidemia Status: Chronic (7) Hypertensive heart disease Status: Chronic (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 (9) Rales Status: Resolved (10) Anemia Status: Acute Discharge Plan - Patient Discharge Instructions ACTIVITY: Continue current activity DIET: continue same diet Patient Instructions: High-Calorie, High-Protein Diet, DI for Dehydration -- Adult, DI for Abdominal Pain-Adult, DI for Hypotension - Follow up Plan Follow up with: Tyra Werner MD [Primary Care Provider] - 02/10/18 Disposition: Home, Self-Senior Living Medications: Home Medications Medication Instructions Recorded Confirmed Type cholecalciferol (vitamin D3) 1,000 1,000 unit PO DAILY 12/18/17 02/04/18 History unit capsule ferrous gluconate 324 mg (36 mg 324 mg PO BID tab 12/18/17 02/03/18 History iron) tablet fluticasone 50 mcg/actuation nasal 50 mcg INTRANASAL DAILY 12/18/17 02/04/18 History spray,suspension hydroxychloroquine 200 mg tablet 200 mg PO DAILY 12/18/17 02/04/18 History leflunomide 20 mg tablet 20 mg PO DAILY 12/18/17 02/04/18 History loratadine 10 mg capsule 10 mg PO DAILY 12/18/17 02/04/18 History megestrol 400 mg/10 mL (10 mL) 800 mg PO DAILY ml 12/18/17 02/04/18 History oral suspension metoprolol succinate ER 100 mg 100 mg PO DAILY tab 12/18/17 02/04/18 History tablet,extended release 24 hr omeprazole 20 mg capsule,delayed 20 mg PO BID 12/18/17 02/04/18 History release pravasta
== END 2018-02-06 09:45 | disposition home or self-care (01) | DRG 390 ==
PROVIDERS: Family Medicine; Physician Assistant; Admitting Provider Family Medicine; PCP Family Medicine; Visit Provider Family Medicine
DX: K56.600 Partial intestinal obstruction, unspecified as to cause (principal); I95.9 Hypotension, unspecified; E86.0 Dehydration; I11.9 Hypertensive heart disease without heart failure; M06.9 Rheumatoid arthritis, unspecified; I25.10 Atherosclerotic heart disease of native coronary artery without angina pectoris; Z95.1 Presence of aortocoronary bypass graft; Q63.1 Lobulated, fused and horseshoe kidney; Z87.891 Personal history of nicotine dependence
CPT/HCPCS: 36415; 71046; 74018; 80048; 80053; 81001; 82607; 85025; 85044

== ENCOUNTER → 2018-02-10 12:11 | Outpatient (CLI) | payer MEDICARE, OTHER, SELFPAY ==
--- NOTE | 2018-02-10 14:15 | PC.NURSE ---
02/10/18 1245 Right portacath accessed for type and cross per lab request. Good blood return/flushes easily. Port accessed per sterile technique per protocol. Port flushed with saline/heparin instilled per protocol post lab draw. Port left accessed for pt to return to outpatient infusion tomorrow 02/11/18 for blood transfusion as ordered. Pt lm all well.
== END ==
PROVIDERS: Visit Provider Family Medicine
DX: D64.9 Anemia, unspecified (principal)
CPT/HCPCS: 36415; 86850

== ENCOUNTER 2018-02-11 08:25 | Outpatient (CLI) | payer MEDICARE, OTHER, SELFPAY ==
[2018-02-11] VITALS (18 sets, daily range): BP systolic 121–165; BP diastolic 60–86; PULSE 54–84; RESP 16–18; TEMP 36.3–36.8; O2SAT 97; BMI 19.5
--- NOTE | 2018-02-11 09:18 | PC.NURSE ---
0915 - INFUSION RATE AT 100 ML/HR AT THIS TIME.
--- NOTE | 2018-02-11 10:00 | PC.NURSE ---
0945 - INCREASED INFUSION RATE TO 150 ML/HR AT THIS TIME.
--- NOTE | 2018-02-11 10:24 | PC.NURSE ---
1015 - INCREASED RATE TO 200 ML/HR AT THIS TIME.
[2018-02-11 10:30] LABS: Hemoglobin 8.8 g/dL (14.1-18.0)
[2018-02-11 10:31] LABS: Hematocrit 27.9 % (42.0-52.0)
--- NOTE | 2018-02-11 11:13 | PC.NURSE ---
1045 - INCREASED RATE TO 250 ML/HR AT THIS TIME.
--- NOTE | 2018-02-11 11:49 | PC.NURSE ---
1142 - INFUSION RATE AT 100 ML/HR AT THIS TIME.
--- NOTE | 2018-02-11 12:25 | PC.NURSE ---
1212 - INCREASED RATE TO 150ML/HR AT THIS TIME.
--- NOTE | 2018-02-11 12:50 | PC.NURSE ---
1242 - INCREASED RATE TO 200 ML/HR AT THIS TIME.
[2018-02-11 14:59] LABS: Hematocrit 30.4 % (42.0-52.0); Hemoglobin 9.8 g/dL (14.1-18.0)
--- NOTE | 2018-02-11 15:25 | PC.NURSE ---
1430 - BLOOD DRAWN FROM PORT AT THIS TIME TO DRAW 1 HR POST HGB/HCT.
== END 2018-02-11 15:10 | disposition home or self-care (01) ==
LOC: INF 08:32
PROVIDERS: PCP Family Medicine; Visit Provider Family Medicine
DX: D64.9 Anemia, unspecified (principal)
CPT/HCPCS: 36430; 85014; 85018; J1642; P9016

== ENCOUNTER → 2018-03-08 11:21 | Outpatient (POV) | payer MEDICARE, SELFPAY | PROVIDERS: Visit Provider Nurse Practitioner Acute Care | DX: Z00.00 Encounter for general adult medical examination without abnormal findings (principal) ==

== ENCOUNTER 2018-03-17 14:03 | Inpatient (IN) ==
--- NOTE | 2018-03-17 14:36 | Emergency Department Note ---
ED Disposition Clinical Impression: Pneumonia Qualifiers: Pneumonia type: due to unspecified organism Laterality: bilateral Lung location : unspecified part of lung Qualified Code(s): J18.9 - Pneumonia, unspecified organism Abdominal pain Qualifiers: Abdominal location: generalized Qualified Code(s): R10.84 - Generalized abdominal pain Disposition: Still a Patient Condition on Discharge: Good Referrals: Wendy Willett DPM [Primary Care Provider] - - Critical Care Critical Care Time: No Attestation: On 03/17/18, the high probability of a clinically significant, sudden or life threatening deterioration of the following system(s) required my full and direct attention, intervention and personal management. The time I documented below is in addition to time spent performing reported procedures but includes the following listed in this critical care notation. Medical Decision Making - [place] Inquiry Pt receiving controlled substance: No Vital Signs: 03/17/18 14:18 Temperature 98.1 F Temperature Source Oral Pulse Rate [Right Brachial] 75 Respiratory Rate 18 Blood Pressure [Right Arm] 135/72 Blood Pressure Mean [Right Arm] 93 Blood Pressure Source [Right Arm] Automatic Cuff Blood Pressure Position [Right Arm] Sitting 02 Sat by Pulse Oximetry 98 Oxygen Delivery Method Room Air - Lab Data Lab Results 03/17/18 14:30: WBC 8.1, RBC 3.53 L, Hgb 10.7 L, Hct 32.1 L, MCV 91.1, MCH 30.3 , MCHC 33.3, RDW 15.0, Plt Count 244, MPV 9.5, Neut % (Auto) 81.4 H, Lymph % ( Auto) 11.8, [place] % (Auto) 5.9, Eos % (Auto) 0.6, Baso % (Auto) 0.3, Neut # (Auto ) 6.6, Lymph # (Auto) 0.9, [place] # (Auto) 0.5, Eos # (Auto) 0.1, Baso # (Auto) 0.0 03/17/18 14:30: Sodium 134 L, Potassium 3.7, Chloride 99, Carbon Dioxide 27, Anion Gap 11.7, BUN 16, Creatinine 1.16, Estimated Creat Clear 45, Estimated GFR 61, Est GFR ( Amer) 74, Glucose 96, Calcium 9.3, Total Bilirubin 1.1 H, AST 10 L, ALT 7 L, Alkaline Phosphatase 93, Total Protein 6.6, Albumin 2.3 L , Globulin 4.3 H, Albumin/Globulin Ratio 0.5 L, Lipase 51 L Result diagrams: 03/17/18 14:30 03/17/18 14:30 Orders (Tests/Meds): ORDERS Category Date Time Status Urinalysis and Microscopic Stat Lab 03/17/18 14:23 Ordered - Radiology Data #1 Image(s): Chest Image Reviewed: Yes I have reviewed radiologist's interpretation Bilateral pneumonia more extensive in the right lung with new areas of consolidation in the left upper lobe and left lower lobe. Chronic pleural thickening on the right with a prominent cavitation in the right upper lung zone laterally with focal nodularity along its lateral aspect. Fungal infection is a consideration versus cavitating neoplasm. Chest CT needed for further evaluation. - CT Data CT Scan: Abdomen, Pelvis Time Received: 16:[address] Reviewed: Yes: I have reviewed the patient's CT results, I have viewed the radiologist's interpretation Findings Narrative: Bilateral lower lobe pneumonia right more extensive than left with small loculated effusion on the right. No evidence of intestinal obstruction. Diverticulosis without diverticulitis. Horseshoe kidney. Obstruction. - ECG Data Tracing #1 EKG interpreted by Marcell Braswell MD: Rhythm: Atrial fibrillation Rate: 85 [place]: normal Ectopy: Premature ventricular contractions versus aberrantly conducted beats Conduction: normal ST Segment Changes: none T Wave Changes: Nonspecific Q Waves: none LVH No evidence of acute ischemia or injury Review of previous EKG shows that he had atrial fibrillation with rapid ventricular response on 08/21/17. Medical Decision Narrative: 5:00 PM: Discussed results with patient. He states has chronic cough, chronic shortness of breath since September, stable. Says that he has dyspnea on exertion, stable. No fevers documented, says he has chills. 5:08 PM: Discussed case with Dr. Bueno for Dr. Werner. He is somewhat familiar with the patient. He requests the patient be admitted on IV antibiotics for Dr. werner to see tomorrow. Magnesium citrate for constipation. General Adult HPI - General Chief complaint: Abdominal Pain Stated complaint: possibe bowel blockage Time Seen by Provider: 03/17/18 14:36 Mode of Arrival: Ambulatory Limitations: No Limitations Description of Symptoms (Recalled from ER Triage Doc. by RN): RULE OUT BOWEL OBSTRUCTION - History of Present Illness HPI narrative: 1 week history of abdominal pain that comes and goes. Has vomited once today. Has not had a good bowel movement in 2 days, says that he try to have bowel movement today and had 2 small tools. He also has pain in his lower back. No fever. He is concerned that he may have a bowel obstruction. He was admitted here with a bowel obstruction August 17 of last year until August 28 and had lysis of adhesions after failure of conservative treatment. He was also admitted February 03 - February 06 of this year for a partial small bowel obstruction. - Related Data Home Medications Medication Instructions Recorded Confirmed cholecalciferol (vitamin D3) 1,000 1,000 unit PO DAILY 12/18/17 02/11/18 unit capsule ferrous gluconate 324 mg (36 mg 324 mg PO BID tab 12/18/17 02/11/18 iron) tablet fluticasone 50 mcg/actuation nasal 50 mcg INTRANASAL DAILY 12/18/17 02/11/18 spray,suspension hydroxychloroquine 200 mg tablet 200 mg PO DAILY 12/18/17 02/11/18 leflunomide 20 mg tablet 20 mg PO DAILY 12/18/17 02/11/18 loratadine 10 mg capsule 10 mg PO DAILY 12/18/17 02/11/18 megestrol 400 mg/10 mL (10 mL) 800 mg PO DAILY ml 12/18/17 02/11/18 oral suspension metoprolol succinate ER 100 mg 100 mg PO DAILY tab 12/18/17 02/11/18 tablet,extended release 24 hr omeprazole 20 mg capsule,delayed 20 mg PO BID 12/18/17 02/11/18 release pravastatin 40 mg tablet 40 mg PO HS 12/18/17 02/11/18 terazosin 5 mg capsule 5 mg PO HS 12/18/17 02/11/18 aspirin 81 mg tablet,delayed 81 mg PO DAILY 12/22/17 02/11/18 release Finasteride [Proscar 5mg Tablet] 5 mg PO HS 02/04/18 02/11/18 Metoclopramide HCl [Reglan 5mg 5 mg PO TIDP PRN 02/04/18 02/11/18 Tablet] Montelukast Sodium [Montelukast 10 mg PO HS 02/04/18 02/11/18 10mg Tab] Potassium Chloride [Pot Chlor 20 20 meq PO DAILY 02/04/18 02/11/18 mEq Tab] dilTIAZem HCl [Cartia Xt] 120 mg PO DAILY 02/04/18 02/11/18 prednisone 5 mg tablet PO 15 Days 03/15/18 Allergies Allergy/AdvReac Type Severity Reaction Status Date / Time No Known Allergies Allergy Verified 03/15/18 14:48 [facility] History I have reviewed the patient's past medical history: Yes Medical History: Reports:: Cancer, Coronary Artery Disease, Hyperlipidemia, Hypertension, Myocardial Infarction, Palpitations Denies:: Diabetes Mellitus Type 1, Diabetes Mellitus Type 2, MRSA Other Medical History: Reports: Arthritis (RA), Cataracts, Chemotherapy, Radiation Therapy, Sinus Problems Laterality Cases: Bilateral: Tonsillectomy Other Surgeries: Yes: Angioplasty, CABG, Cancer Surgery, Cardiac Catheterization , Colonoscopy, EGD, Hernia Repair, Other Amputation: No Fractures: Yes ((L) humerus) Comment: Daughter 42 yo PA. Father 49 PA. Son 43 CABG - Social History Educational Level: Completed High School Smoking Status: Former smoker Alcohol Intake: never Alcohol Intake Frequency:: other Occupational Status: retired Housing: house Household Members: none - Psychiatric History Expresses thoughts of harming self/others: None Suicide Plan Description: No Plan Family Hx:: Coronary Artery Disease, Heart Attack, Hyperlipidemia, Hypertension ROS Obtained: Yes All systems reviewed & no additional complaints - Constitutional Constitutional: Denies fever(s) - Cardiovascular Cardiovascular: Denies chest pain - Respiratory Respiratory: No dyspnea - Gastrointestinal Gastrointestingal: Reports: abdominal pain, constipation, vomiting - Genitourinary Male Genitourinary: Denies difficulty urinating - Musculoskeletal Musculoskeletal: Reports back pain Physical Exam - General General appearance: alert, in no apparent distress - Head Head exam: atraumatic, normocephalic, normal inspection - Eye Eye exam: Present: normal appearance, PERRL, EOMI - ENT ENT exam: Present: normal exam, normal oropharynx, mucous membranes moist, TM's normal bilaterally, normal external ear exam - Neck Neck exam: Present: normal inspection, full ROM, trachea midline. Absent: meningismus, lymphadenopathy - Chest Chest inspection: Present: normal inspection, symmetric chest wall rise. Absent : tenderness - Respiratory Respiratory exam: Present: normal lung sounds bilaterally. Absent: respiratory distress - Cardiovascular Cardiovascular exam: Present: regular rate, irregular rhythm. Absent: JVD - Abdominal Exam Abdominal exam: Present: soft, tenderness, normal bowel sounds. Absent: distention, guarding, rebound, rigidity Abdominal tenderness: Present: RUQ, LUQ, epigastrium - Extremities Exam Extremities exam: Present: normal inspection, full ROM, normal capillary refill. Absent: calf tenderness - Back Exam Back exam: Present: normal inspection, CVA tenderness (R), CVA tenderness (L) - Neurological Exam Neurological exam: Present: alert, oriented X3 - Psychiatric Psychiatric exam: Present: normal affect, normal mood - Skin Skin exam: Present: warm, dry, intact, normal color - Lymphatic Lymphatic Findings: no adenopathy
[2018-03-17 14:42] LABS: Hematocrit 32.1 % (42.0-52.0); Hemoglobin 10.7 g/dL (14.1-18.0); Red Blood Count 3.53 M/mm3 (4.60-6.20); White Blood Count 8.1 K/mm3 (4.8-10.8)
[2018-03-17 14:43] LABS: Lymphocytes % 11.8 K/mm3 (10-50); Mean Corpuscular HGB Conc 33.3 g/dL (31.8-35.4); Mean Corpuscular Hemoglobin 30.3 pg (27.0-31.2); Mean Corpuscular Volume 91.1 fl (80-94); Mean Platelet Volume 9.5 fl (7.4-10.4); Monocytes % 5.9 % (1.7-9.3); Neutrophils % 81.4 % (37.0-80.0); Platelet Count 244 K/mm3 (142-424)
[2018-03-17 14:44] LABS: Basophils % 0.3 % (0.1-2.0); Eosinophils # 0.1 K/mm3 (0.0-0.4); Eosinophils % 0.6 % (0.1-12.0); Lymphocytes # 0.9 K/mm3 (0.7-4.5); Monocytes # 0.5 K/mm3 (0.1-1.0); Neutrophils # 6.6 K/mm3 (1.8-7.8)
[2018-03-17 14:52] LABS: Albumin Level 2.3 gm/dL (3.4-5.0); Albumin/Globulin Ratio 0.5 (1.1-1.8); Anion Gap 11.7 mEq/L (5-15); Bilirubin,Total 1.1 mg/dL (0.2-1.0); Calcium 9.3 mg/dL (8.5-10.1); Globulin 4.3 gm/dl (1.3-3.2); Potassium 3.7 mmoL/L (3.5-5.1); Total Protein,Serum 6.6 gm/dL (6.4-8.2)
--- NOTE | 2018-03-17 18:02 | History & Physical Report ---
*Admission Date: 03/17/18 *Chief complaint: abdominal pain, vomiting, cough *History of present illness: Mr. Ley is a 77yo male with a hx of a SBO in January when he was admitted. He states he has been constipated for the past few days and began having abdominal pain and vomited once. He was scared he might have another partial SBO, so he presented to the ER. A CXR and CT of the abdomen and pelvis revealed a bilateral pneumonia rather than a bowel obstruction. He does state he has had a dry cough for quite a while and has been getting more SOA. He will be admitted for hydration and IV abx. [facility] History Medical History: Reports:: Cancer, Coronary Artery Disease, Hyperlipidemia, Hypertension, Myocardial Infarction, Palpitations Denies:: Diabetes Mellitus Type 1, Diabetes Mellitus Type 2, MRSA Other Medical History: Reports: Arthritis (RA), Cataracts, Chemotherapy, Radiation Therapy, Sinus Problems Laterality Cases: Bilateral: Tonsillectomy Other Surgeries: Yes: Angioplasty, CABG, Cancer Surgery, Cardiac Catheterization , Colonoscopy, EGD, Hernia Repair, Other Amputation: No Fractures: Yes ((L) humerus) - *Social History Educational Level: Completed High School Smoking Status: Former smoker Alcohol Intake: never Alcohol Intake Frequency:: other Occupational Status: retired Housing: house Household Members: none - Psychiatric History Expresses thoughts of harming self/others: None Suicide Plan Description: No Plan *Family Hx:: Coronary Artery Disease, Heart Attack, Hyperlipidemia, Hypertension Review of Systems - Constitutional Reports chills, Reports fatigue, Reports fever(s), Reports weakness - Eyes Denies blurry vision, Denies double vision - ENT Denies nasal congestion, Denies sore throat - *Cardiovascular Denies chest pain, Denies fast heart rate - *Respiratory Reports cough, Reports shortness of breath, Denies wheezing - *Gastrointestinal Reports abdominal pain, Reports constipation, Reports nausea, Reports vomiting, Denies loose stools - *Genitourinary Denies difficulty urinating, Denies painful urination - *Musculoskeletal Reports back pain, Reports body aches - *Neurologic Reports weakness, Denies dizziness Meds Home Medications Medication Instructions Recorded Confirmed Type cholecalciferol (vitamin D3) 1,000 1,000 unit PO DAILY 12/18/17 03/17/18 History unit capsule ferrous gluconate 324 mg (36 mg 324 mg PO BID tab 12/18/17 03/17/18 History iron) tablet fluticasone 50 mcg/actuation nasal 50 mcg INTRANASAL DAILY 12/18/17 03/17/18 History spray,suspension hydroxychloroquine 200 mg tablet 200 mg PO DAILY 12/18/17 03/17/18 History leflunomide 20 mg tablet 20 mg PO DAILY 12/18/17 03/17/18 History loratadine 10 mg capsule 10 mg PO DAILY 12/18/17 03/17/18 History megestrol 400 mg/10 mL (10 mL) 800 mg PO DAILY ml 12/18/17 03/17/18 History oral suspension metoprolol succinate ER 100 mg 100 mg PO DAILY tab 12/18/17 03/17/18 History tablet,extended release 24 hr omeprazole 20 mg capsule,delayed 20 mg PO BID 12/18/17 03/17/18 History release pravastatin 40 mg tablet 40 mg PO HS 12/18/17 03/17/18 History terazosin 5 mg capsule 5 mg PO HS 12/18/17 03/17/18 History aspirin 81 mg tablet,delayed 81 mg PO DAILY 12/22/17 03/17/18 History release Finasteride [Proscar 5mg Tablet] 5 mg PO HS 02/04/18 03/17/18 History Metoclopramide HCl [Reglan 5mg 5 mg PO TIDP PRN 02/04/18 03/17/18 History Tablet] Montelukast Sodium [Montelukast 10 mg PO HS 02/04/18 03/17/18 History 10mg Tab] Potassium Chloride [Pot Chlor 20 20 meq PO DAILY 02/04/18 03/17/18 History mEq Tab] dilTIAZem HCl [Cartia Xt] 120 mg PO DAILY 02/04/18 03/17/18 History prednisone 5 mg tablet 5 mg PO DAILY 15 Days 03/15/18 03/17/18 History Allergies Allergy/AdvReac Type Severity Reaction Status Date / Time No Known Allergies Allergy Verified 03/15/18 14:48 Exam Vital signs and Labs for Last 24 Hours: Temp Pulse Resp BP Pulse Ox 98.1 F 75 18 135/72 98 03/17/18 14:18 03/17/18 14:18 03/17/18 14:18 03/17/18 14:18 03/17/18 14:18 Laboratory Results - last 24 hr 03/17/18 14:30: WBC 8.1, RBC 3.53 L, Hgb 10.7 L, Hct 32.1 L, MCV 91.1, MCH 30.3 , MCHC 33.3, RDW 15.0, Plt Count 244, MPV 9.5, Neut % (Auto) 81.4 H, Lymph % ( Auto) 11.8, [place] % (Auto) 5.9, Eos % (Auto) 0.6, Baso % (Auto) 0.3, Neut # (Auto ) 6.6, Lymph # (Auto) 0.9, [place] # (Auto) 0.5, Eos # (Auto) 0.1, Baso # (Auto) 0.0 03/17/18 14:30: Sodium 134 L, Potassium 3.7, Chloride 99, Carbon Dioxide 27, Anion Gap 11.7, BUN 16, Creatinine 1.16, Estimated Creat Clear 45, Estimated GFR 61, Est GFR ( Amer) 74, Glucose 96, Calcium 9.3, Total Bilirubin 1.1 H, AST 10 L, ALT 7 L, Alkaline Phosphatase 93, Total Protein 6.6, Albumin 2.3 L , Globulin 4.3 H, Albumin/Globulin Ratio 0.5 L, Lipase 51 L I & O for Last 24 hours: Intake & Output 03/15/18 03/16/18 03/17/18 03/18/18 11:59 11:59 11:59 11:59 Weight 135 lb - Constitutional Comments: Does not appear to feel well - *Routine HEENT Exam Head: Present: normocephalic, atraumatic Eye: Present: EOMI, PERRL ENT: Present: mucous membranes dry - *Routine Neck Exam Present: supple, full ROM - *Routine Respiratory Exam Present: crackles (bilateral bases but worse on the right) - *Routine Cardiovascular Exam Present: RRR (with frequent ectopics) - *Routine Abdominal Exam Present: soft, normoactive bowel sounds, tenderness (in the epigastric areas, small nodules palpable in the epigastric area and just above the umbilicus) - *Routine Extremities Exam Absent: edema - *Routine Skin Exam Present: pallor - *Routine Neurological Exam Present: alert, oriented X3 H&P: Result - Labs Labs: - Impressions CT abd/pelvis 1. Bilateral lower lobe pneumonia right more extensive than left with small loculated effusion on the right. 2. No evidence of intestinal obstruction. 3. Diverticulosis. No evidence of diverticulitis. 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 Bilateral pneumonia more extensive in the right lung with new areas of consolidation in the left upper lobe and left lower lobe. 2. Chronic pleural thickening on the right with a prominent cavitation in the right upper lung zone laterally with focal nodularity along its lateral aspect. A fungal infection is a consideration versus cavitating neoplasm. Chest CT needed for further evaluation. Assessment and Plan (1) Pneumonia Current visit: Yes Status: Acute Qualifiers: Pneumonia type: due to unspecified organism Laterality: bilateral Lung location: unspecified part of lung Qualified Code(s): J18.9 - Pneumonia, unspecified organism Category: Medical Code(s): J18.9 - Pneumonia, unspecified organism (2) Cavitary lesion of lung Current visit: Yes Status: Acute Category: Medical Code(s): J98.4 - Other disorders of lung (3) Abdominal pain Current visit: Yes Status: Acute Qualifiers: Abdominal location: generalized Qualified Code(s): R10.84 - Generalized abdominal pain Category: Medical Code(s): R10.9 - Unspecified abdominal pain (4) Anemia Current visit: No Status: Chronic Category: Medical Code(s): D64.9 - Anemia, unspecified (5) Coronary arteriosclerosis Current visit: No Status: Chronic Category: Medical Code(s): I25.10 - Atherosclerotic heart disease of [place] coronary artery without angina pectoris (6) Hyperlipidemia Current visit: No Status: Chronic Qualifiers: Category: Medical Code(s): E78.5 - Hyperlipidemia, unspecified (7) Hypertensive heart disease Current visit: No Status: Chronic Qualifiers: Category: Medical Code(s): I11.9 - Hypertensive heart disease without heart failure (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 He will be started on IVF's and abx. Will discuss the need for a chest CT with Dr. Werner.
[2018-03-18 02:05] LABS: Microscopic, Urine URINE MICROSCOPIC (MICROSCOPIC)
[2018-03-18 02:07] LABS: Appearance,Urine CLEAR (Clear); Bilirubin,Urine Negative (Negative); Blood, Urine Negative (Negative); Color,Urine YELLOW (Yellow); Glucose,Urine (UA) Negative (Negative); Ketones,Urine TRACE (Negative); Leukocyte Esterase,Urine Negative (Negative); PH,Urine 5.5 (5.0-8.5); Protein,Urine Negative (Negative); Specific Gravity, Urine 1.025 (1.005-1.030); Urobilinogen,Urine 0.2 EU/dl (0.2)
[2018-03-18 02:21] LABS: Bacteria,Urine 1+ /lpf; Mucus,Urine 1+ /lpf
[2018-03-18 06:09] LABS: Basophils % 0.4 % (0.1-2.0); Eosinophils # 0.1 K/mm3 (0.0-0.4); Eosinophils % 0.8 % (0.1-12.0); Hematocrit 30.7 % (42.0-52.0); Hemoglobin 9.8 g/dL (14.1-18.0); Lymphocytes % 10.7 K/mm3 (10-50); Mean Corpuscular HGB Conc 31.9 g/dL (31.8-35.4); Mean Corpuscular Hemoglobin 29.4 pg (27.0-31.2); Mean Corpuscular Volume 92.2 fl (80-94); Mean Platelet Volume 9.1 fl (7.4-10.4); Monocytes # 0.6 K/mm3 (0.1-1.0); Monocytes % 6.6 % (1.7-9.3); Neutrophils # 7.4 K/mm3 (1.8-7.8); Neutrophils % 81.4 % (37.0-80.0); Platelet Count 234 K/mm3 (142-424); Red Blood Count 3.34 M/mm3 (4.60-6.20); Red Cell Distribution Width 14.9 % (11.5-17.5)
--- NOTE | 2018-03-18 08:00 | Pharmacy Consult Notes ---
[facility] Pharmacy VTE Monitoring - Patient Demographics Admission date: 03/17/18 Report Date: 03/18/18 Time: 08:00 Allergies/Adverse Reactions: Patient Allergies No Known Allergies Allergy (Verified 03/15/18 14:48) Height: 1.8 m Weight: 56.245 kg Patient Problems: Current Active Problems Pneumonia (Acute) Abdominal pain (Acute) Cavitary lesion of lung (Acute) - VTE Risk Labs: VTE Related Lab Results Hgb 9.8 g/dL (14.1-18.0) L 03/18/18 05:45 Hct 30.7 % (42.0-52.0) L 03/18/18 05:45 Plt Count 234 K/mm3 (142-424) 03/18/18 05:45 BUN 16 mg/dL (7-18) 03/17/18 14:30 Creatinine 1.16 mg/dL (0.70-1.30) 03/17/18 14:30 Estimated Creat Clear 45 mL/min (0-300) 03/17/18 14:30 Was VTE Risk Assessment Performed: Yes VTE Score: 10 VTE Risk Level: Moderate Risk - Prophylaxis VTE Prophylaxis Ordered?: Yes Types of VTE Prophylaxis: TEDS Knee High Location of Applied Device: Bilateral Lower Extremeties - VTE Diagnosis Confirmed Treatment or plan recommended: Continue Current Treatment
--- NOTE | 2018-03-18 08:50 | Progress Note ---
Internal Medicine - PN: Subj *Date: 03/18/18 *Time: 08:47 Interval history: Patient is feeling better this morning. He states he had multiple loose bowel movements throughout the night. He did receive magnesium citrate in the emergency room. He still has a dry cough and feels weak. He was trying to eat some of his breakfast this morning. He states he feels dehydrated. Exam Vital signs and Labs for Last 24 Hours: Temp Pulse Resp BP Pulse Ox 98.0 F 123 H 22 126/87 93 L 03/18/18 04:00 03/18/18 04:00 03/18/18 04:00 03/18/18 04:00 03/18/18 04:00 Laboratory Results - last 24 hr 03/18/18 01:45: Urine Color Yellow, Urine Appearance Clear, Urine pH 5.5, Ur Specific [place] 1.025, Urine Protein Negative, Urine Glucose (UA) Negative, Urine Ketones Trace, Urine Blood Negative, Urine Nitrate Negative, Urine Bilirubin Negative, Urine Urobilinogen 0.2, Ur Leukocyte Esterase Negative, Urine RBC 3-5, Urine WBC 3-5, Urine Bacteria 1+, Hyaline Casts 3-5, Urine Mucus 1+ 03/18/18 05:45: WBC 9.0, RBC 3.34 L, Hgb 9.8 L, Hct 30.7 L, MCV 92.2, MCH 29.4, MCHC 31.9, RDW 14.9, Plt Count 234, MPV 9.1, Neut % (Auto) 81.4 H, Lymph % (Auto ) 10.7, [place] % (Auto) 6.6, Eos % (Auto) 0.8, Baso % (Auto) 0.4, Neut # (Auto) 7.4, Lymph # (Auto) 1.0, [place] # (Auto) 0.6, Eos # (Auto) 0.1, Baso # (Auto) 0.0 I & O for Last 24 hours: Intake & Output 03/15/18 03/16/18 03/17/18 03/18/18 11:59 11:59 11:59 11:59 Intake Total 120 / 120 Output Total 1000 / 1000 Balance -880 / -880 Weight 124 lb - Constitutional no acute distress - *Routine Respiratory Exam Present: rales (basilar) - *Routine Cardiovascular Exam Present: RRR - *Routine Abdominal Exam Present: soft, normoactive bowel sounds. Absent: tenderness - *Routine Extremities Exam Absent: edema Assessment and Plan (1) Pneumonia Current visit: Yes Status: Acute Qualifiers: Pneumonia type: due to unspecified organism Laterality: bilateral Lung location: unspecified part of lung Qualified Code(s): J18.9 - Pneumonia, unspecified organism Category: Medical Code(s): J18.9 - Pneumonia, unspecified organism (2) Cavitary lesion of lung Current visit: Yes Status: Acute Category: Medical Code(s): J98.4 - Other disorders of lung (3) Abdominal pain Current visit: Yes Status: Acute Qualifiers: Abdominal location: generalized Qualified Code(s): R10.84 - Generalized abdominal pain Category: Medical Code(s): R10.9 - Unspecified abdominal pain (4) Anemia Current visit: No Status: Chronic Category: Medical Code(s): D64.9 - Anemia, unspecified (5) Coronary arteriosclerosis Current visit: No Status: Chronic Category: Medical Code(s): I25.10 - Atherosclerotic heart disease of [place] coronary artery without angina pectoris (6) Hyperlipidemia Current visit: No Status: Chronic Qualifiers: Category: Medical Code(s): E78.5 - Hyperlipidemia, unspecified (7) Hypertensive heart disease Current visit: No Status: Chronic Qualifiers: Category: Medical Code(s): I11.9 - Hypertensive heart disease without heart failure (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 We will continue IV antibiotics for his pneumonia and will start on IV fluids at 75 an hour this morning. Will recheck labs tomorrow.
[2018-03-19 05:55] LABS: Basophils % 0.3 % (0.1-2.0); Eosinophils % 0.6 % (0.1-12.0); Hematocrit 28.4 % (42.0-52.0); Lymphocytes % 12.9 K/mm3 (10-50); Mean Corpuscular HGB Conc 31.8 g/dL (31.8-35.4); Mean Corpuscular Hemoglobin 29.7 pg (27.0-31.2); Mean Corpuscular Volume 93.5 fl (80-94); Mean Platelet Volume 9.5 fl (7.4-10.4); Monocytes # 0.4 K/mm3 (0.1-1.0); Monocytes % 5.6 % (1.7-9.3); Neutrophils % 80.6 % (37.0-80.0); Platelet Count 240 K/mm3 (142-424); Red Blood Count 3.03 M/mm3 (4.60-6.20); Red Cell Distribution Width 15.1 % (11.5-17.5); White Blood Count 7.5 K/mm3 (4.8-10.8)
[2018-03-19 06:08] LABS: Albumin Level 1.8 gm/dL (3.4-5.0); Albumin/Globulin Ratio 0.5 (1.1-1.8); Anion Gap 9.7 mEq/L (5-15); Bilirubin,Total 0.4 mg/dL (0.2-1.0); Calcium 8.8 mg/dL (8.5-10.1); Globulin 3.7 gm/dl (1.3-3.2); Potassium 3.7 mmoL/L (3.5-5.1); Total Protein,Serum 5.5 gm/dL (6.4-8.2)
--- NOTE | 2018-03-19 12:12 | Progress Note ---
Internal Medicine - PN: Subj *Date: 03/19/18 *Time: 12:10 Interval history: Pt states he is feeling better this am. Denies abdominal pain. Now coughing up yellow sputum. Exam Vital signs and Labs for Last 24 Hours: Temp Pulse Resp BP Pulse Ox 98.1 F 70 20 137/73 95 03/19/18 12:00 03/19/18 12:00 03/19/18 12:00 03/19/18 12:00 03/19/18 12:00 Laboratory Results - last 24 hr 03/19/18 05:45: WBC 7.5, RBC 3.03 L, Hgb 9.0 L, Hct 28.4 L, MCV 93.5, MCH 29.7, MCHC 31.8, RDW 15.1, Plt Count 240, MPV 9.5, Neut % (Auto) 80.6 H, Lymph % (Auto ) 12.9, [place] % (Auto) 5.6, Eos % (Auto) 0.6, Baso % (Auto) 0.3, Neut # (Auto) 6.0, Lymph # (Auto) 1.0, [place] # (Auto) 0.4, Eos # (Auto) 0.0, Baso # (Auto) 0.0 03/19/18 05:45: Sodium 140, Potassium 3.7, Chloride 106, Carbon Dioxide 28, Anion Gap 9.7, BUN 11 D, Creatinine 0.93, Estimated Creat Clear 48, Estimated GFR 79, Est GFR ( Amer) 95 D, Glucose 98, Calcium 8.8, Total Bilirubin 0.4, AST 9 L, ALT 5 L D, Alkaline Phosphatase 77, Total Protein 5.5 L, Albumin 1.8 L, Globulin 3.7 H, Albumin/Globulin Ratio 0.5 L I & O for Last 24 hours: Intake & Output 03/17/18 03/18/18 03/19/18 03/20/18 11:59 11:59 11:59 11:59 Intake Total 440 / 440 2408 / 2408 Output Total 1125 / 1125 950 / 950 Balance -685 / -685 1458 / 1458 Weight 124 lb Microbiology Reports for the Last 24 Hours: Microbiology 03/18/18 11:20 Sputum - Expectorated Sputum Gram Stain - Final 03/18/18 11:20 Sputum - Expectorated Sputum Sputum Culture - Preliminary - Constitutional no acute distress - *Routine Respiratory Exam Present: rales (worse on the right) - *Routine Cardiovascular Exam Present: RRR - *Routine Abdominal Exam Present: soft, normoactive bowel sounds. Absent: tenderness - *Routine Extremities Exam Absent: edema Assessment and Plan (1) Pneumonia Current visit: Yes Status: Acute Qualifiers: Pneumonia type: due to unspecified organism Laterality: bilateral Lung location: unspecified part of lung Qualified Code(s): J18.9 - Pneumonia, unspecified organism Category: Medical Code(s): J18.9 - Pneumonia, unspecified organism (2) Cavitary lesion of lung Current visit: Yes Status: Acute Category: Medical Code(s): J98.4 - Other disorders of lung (3) Abdominal pain Current visit: Yes Status: Acute Qualifiers: Abdominal location: generalized Qualified Code(s): R10.84 - Generalized abdominal pain Category: Medical Code(s): R10.9 - Unspecified abdominal pain (4) Anemia Current visit: No Status: Chronic Category: Medical Code(s): D64.9 - Anemia, unspecified (5) Coronary arteriosclerosis Current visit: No Status: Chronic Category: Medical Code(s): I25.10 - Atherosclerotic heart disease of [place] coronary artery without angina pectoris (6) Hyperlipidemia Current visit: No Status: Chronic Qualifiers: Category: Medical Code(s): E78.5 - Hyperlipidemia, unspecified (7) Hypertensive heart disease Current visit: No Status: Chronic Qualifiers: Category: Medical Code(s): I11.9 - Hypertensive heart disease without heart failure (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 Will saline lock.
[2018-03-20 10:16] LABS: Basophils % 0.3 % (0.1-2.0); Eosinophils # 0.1 K/mm3 (0.0-0.4); Eosinophils % 0.9 % (0.1-12.0); Hematocrit 31.1 % (42.0-52.0); Hemoglobin 9.7 g/dL (14.1-18.0); Lymphocytes # 1.1 K/mm3 (0.7-4.5); Lymphocytes % 12.4 K/mm3 (10-50); Mean Corpuscular HGB Conc 31.3 g/dL (31.8-35.4); Mean Corpuscular Hemoglobin 29.5 pg (27.0-31.2); Mean Corpuscular Volume 94.5 fl (80-94); Mean Platelet Volume 8.9 fl (7.4-10.4); Monocytes # 0.5 K/mm3 (0.1-1.0); Monocytes % 5.9 % (1.7-9.3); Neutrophils # 6.8 K/mm3 (1.8-7.8); Neutrophils % 80.5 % (37.0-80.0); Platelet Count 246 K/mm3 (142-424); Red Cell Distribution Width 15.1 % (11.5-17.5); White Blood Count 8.5 K/mm3 (4.8-10.8)
[2018-03-20 10:20] LABS: Anion Gap 10.6 mEq/L (5-15); Potassium 3.6 mmoL/L (3.5-5.1)
--- NOTE | 2018-03-20 13:49 | Progress Note ---
Internal Medicine - PN: Subj *Date: 03/20/18 *Time: 13:46 Interval history: He is not feeling badly. His cough is slightly more productive. He asks about medications to help break this up. He is resting okay and in no discomfort. His bowels move in small amounts. Exam Vital signs and Labs for Last 24 Hours: Temp Pulse Resp BP Pulse Ox 99.2 F 18 L 18 154/89 95 03/20/18 11:27 03/20/18 11:27 03/20/18 11:27 03/20/18 11:27 03/20/18 11:27 Laboratory Results - last 24 hr 03/20/18 10:06: WBC 8.5, RBC 3.30 L, Hgb 9.7 L, Hct 31.1 L, MCV 94.5 H, MCH 29.5 , MCHC 31.3 L, RDW 15.1, Plt Count 246, MPV 8.9, Neut % (Auto) 80.5 H, Lymph % ( Auto) 12.4, [place] % (Auto) 5.9, Eos % (Auto) 0.9, Baso % (Auto) 0.3, Neut # (Auto ) 6.8, Lymph # (Auto) 1.1, [place] # (Auto) 0.5, Eos # (Auto) 0.1, Baso # (Auto) 0.0 03/20/18 10:06: Sodium 140, Potassium 3.6, Chloride 106, Carbon Dioxide 27, Anion Gap 10.6, BUN 12, Creatinine 0.96, Estimated Creat Clear 48, Estimated GFR 76, Est GFR ( Amer) 92, Glucose 97 I & O for Last 24 hours: Intake & Output 03/18/18 03/19/18 03/20/18 03/21/18 11:59 11:59 11:59 11:59 Intake Total 440 / 440 2408 / 2408 Output Total 1125 / 1125 950 / 950 600 / 600 Balance -685 / -685 1458 / 1458 -600 / -600 Weight 124 lb 123 lb 15.984 oz Microbiology Reports for the Last 24 Hours: Microbiology 03/18/18 11:20 Sputum - Expectorated Sputum Gram Stain - Final 03/18/18 11:20 Sputum - Expectorated Sputum Sputum Culture - Final Yeast 03/19/18 17:03 Sputum - Expectorated Sputum Gram Stain - Final - Constitutional no acute distress - *Routine Respiratory Exam Present: crackles (Bilateral but worse on the right in the area that corresponds to the cavitary lesion) - *Routine Cardiovascular Exam Present: RRR - *Routine Abdominal Exam Present: soft. Absent: tenderness - *Routine Extremities Exam Absent: edema Assessment and Plan (1) Pneumonia Current visit: Yes Status: Acute Qualifiers: Pneumonia type: due to unspecified organism Laterality: bilateral Lung location: unspecified part of lung Qualified Code(s): J18.9 - Pneumonia, unspecified organism Category: Medical Code(s): J18.9 - Pneumonia, unspecified organism (2) Cavitary lesion of lung Current visit: Yes Status: Acute Category: Medical Code(s): J98.4 - Other disorders of lung (3) Abdominal pain Current visit: Yes Status: Acute Qualifiers: Abdominal location: generalized Qualified Code(s): R10.84 - Generalized abdominal pain Category: Medical Code(s): R10.9 - Unspecified abdominal pain (4) Anemia Current visit: No Status: Chronic Category: Medical Code(s): D64.9 - Anemia, unspecified (5) Coronary arteriosclerosis Current visit: No Status: Chronic Category: Medical Code(s): I25.10 - Atherosclerotic heart disease of [place] coronary artery without angina pectoris (6) Hyperlipidemia Current visit: No Status: Chronic Qualifiers: Category: Medical Code(s): E78.5 - Hyperlipidemia, unspecified (7) Hypertensive heart disease Current visit: No Status: Chronic Qualifiers: Category: Medical Code(s): I11.9 - Hypertensive heart disease without heart failure (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 Guaifenesin 1200 milligrams twice a day. Fungal titers ordered
--- NOTE | 2018-03-21 10:35 | Progress Note ---
Internal Medicine - PN: Subj *Date: 03/21/18 *Time: 10:33 Interval history: He is significantly improved. He is breathing easier and coughing less. He is alert and oriented and shaving himself this morning. He reports a normal stool this morning. Exam Vital signs and Labs for Last 24 Hours: Temp Pulse Resp BP Pulse Ox 98.8 F 87 18 152/78 95 03/21/18 07:44 03/21/18 07:44 03/21/18 07:44 03/21/18 07:44 03/21/18 09:00 I & O for Last 24 hours: Intake & Output 03/18/18 03/19/18 03/20/18 03/21/18 11:59 11:59 11:59 11:59 Intake Total 440 / 440 2408 / 2408 800 / 800 Output Total 1125 / 1125 950 / 950 600 / 600 1900 / 1900 Balance -685 / -685 1458 / 1458 -600 / -600 -1100 / -1100 Weight 124 lb 123 lb 15.984 oz Microbiology Reports for the Last 24 Hours: Microbiology 03/19/18 17:03 Sputum - Expectorated Sputum Gram Stain - Final 03/19/18 17:03 Sputum - Expectorated Sputum Sputum Culture - Final Normal Respiratory Shaila 03/18/18 11:20 Sputum - Expectorated Sputum Gram Stain - Final 03/18/18 11:20 Sputum - Expectorated Sputum Sputum Culture - Final Yeast - *Routine Respiratory Exam Comments: Lungs are clear on auscultation. There are less rales heard. - *Routine Cardiovascular Exam Present: RRR - *Routine Abdominal Exam Present: soft. Absent: tenderness - *Routine Extremities Exam Present: edema (Trace) Assessment and Plan (1) Pneumonia Current visit: Yes Status: Acute Qualifiers: Pneumonia type: due to unspecified organism Laterality: bilateral Lung location: unspecified part of lung Qualified Code(s): J18.9 - Pneumonia, unspecified organism Category: Medical Code(s): J18.9 - Pneumonia, unspecified organism (2) Cavitary lesion of lung Current visit: Yes Status: Acute Category: Medical Code(s): J98.4 - Other disorders of lung (3) Abdominal pain Current visit: Yes Status: Acute Qualifiers: Abdominal location: generalized Qualified Code(s): R10.84 - Generalized abdominal pain Category: Medical Code(s): R10.9 - Unspecified abdominal pain (4) Anemia Current visit: No Status: Chronic Category: Medical Code(s): D64.9 - Anemia, unspecified (5) Coronary arteriosclerosis Current visit: No Status: Chronic Category: Medical Code(s): I25.10 - Atherosclerotic heart disease of [place] coronary artery without angina pectoris (6) Hyperlipidemia Current visit: No Status: Chronic Qualifiers: Category: Medical Code(s): E78.5 - Hyperlipidemia, unspecified (7) Hypertensive heart disease Current visit: No Status: Chronic Qualifiers: Category: Medical Code(s): I11.9 - Hypertensive heart disease without heart failure (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
--- NOTE | 2018-03-21 15:53 | Progress Note ---
Internal Medicine - PN: Subj *Date: 03/21/18 *Time: 15:53 Exam Vital signs and Labs for Last 24 Hours: Temp Pulse Resp BP Pulse Ox 98.4 F 77 18 128/68 96 03/21/18 15:29 03/21/18 15:29 03/21/18 15:29 03/21/18 15:29 03/21/18 15:29 I & O for Last 24 hours: Intake & Output 03/18/18 03/19/18 03/20/18 03/21/18 23:59 23:59 23:59 23:59 Intake Total 1900 / 1900 948 / 948 800 / 800 Output Total 1675 / 1675 600 / 600 1800 / 1800 500 / 500 Balance 225 / 225 348 / 348 -1000 / -1000 -500 / -500 Weight 56.245 kg 56.245 kg Microbiology Reports for the Last 24 Hours: Microbiology 03/19/18 17:03 Sputum - Expectorated Sputum Gram Stain - Final 03/19/18 17:03 Sputum - Expectorated Sputum Sputum Culture - Final Normal Respiratory Shaila Assessment and Plan (1) Pneumonia Current visit: Yes Status: Acute Qualifiers: Pneumonia type: due to unspecified organism Laterality: bilateral Lung location: unspecified part of lung Qualified Code(s): J18.9 - Pneumonia, unspecified organism Category: Medical Code(s): J18.9 - Pneumonia, unspecified organism (2) Cavitary lesion of lung Current visit: Yes Status: Acute Category: Medical Code(s): J98.4 - Other disorders of lung (3) Abdominal pain Current visit: Yes Status: Acute Qualifiers: Abdominal location: generalized Qualified Code(s): R10.84 - Generalized abdominal pain Category: Medical Code(s): R10.9 - Unspecified abdominal pain (4) Anemia Current visit: No Status: Chronic Category: Medical Code(s): D64.9 - Anemia, unspecified (5) Coronary arteriosclerosis Current visit: No Status: Chronic Category: Medical Code(s): I25.10 - Atherosclerotic heart disease of [place] coronary artery without angina pectoris (6) Hyperlipidemia Current visit: No Status: Chronic Qualifiers: Category: Medical Code(s): E78.5 - Hyperlipidemia, unspecified (7) Hypertensive heart disease Current visit: No Status: Chronic Qualifiers: Category: Medical Code(s): I11.9 - Hypertensive heart disease without heart failure (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
--- NOTE | 2018-03-22 09:31 | Progress Note ---
Internal Medicine - PN: Subj *Date: 03/22/18 *Time: 09:29 Interval history: Ready for discharge. Recent CXR shows right sided infiltrates mandeep terms them "chronic." Clinically he is stable. Exam Vital signs and Labs for Last 24 Hours: Temp Pulse Resp BP Pulse Ox 97.8 F 91 H 16 123/66 95 03/22/18 08:00 03/22/18 08:00 03/22/18 08:00 03/22/18 08:00 03/22/18 08:00 I & O for Last 24 hours: Intake & Output 03/19/18 03/20/18 03/21/18 03/22/18 11:59 11:59 11:59 11:59 Intake Total 2408 / 2408 800 / 800 700 / 700 Output Total 950 / 950 600 / 600 1900 / 1900 2560 / 2560 Balance 1458 / 1458 -600 / -600 -1100 / -1100 -1860 / -1860 Weight 123 lb 15.984 oz Microbiology Reports for the Last 24 Hours: Microbiology 03/17/18 18:30 Blood Blood Culture - Preliminary NO GROWTH AFTER 4 DAYS 03/17/18 18:15 Blood Blood Culture - Preliminary NO GROWTH AFTER 4 DAYS 03/19/18 17:03 Sputum - Expectorated Sputum Gram Stain - Final 03/19/18 17:03 Sputum - Expectorated Sputum Sputum Culture - Final Normal Respiratory Shaila - Constitutional no acute distress - *Routine HEENT Exam Head: Present: normocephalic Eye: Present: PERRL ENT: Present: mucous membranes moist - *Routine Respiratory Exam Comments: Rales are actually decreased. More right sided than left, as usual. - *Routine Cardiovascular Exam Present: RRR Assessment and Plan (1) Pneumonia Current visit: Yes Status: Acute Qualifiers: Pneumonia type: due to unspecified organism Laterality: bilateral Lung location: unspecified part of lung Qualified Code(s): J18.9 - Pneumonia, unspecified organism Category: Medical Code(s): J18.9 - Pneumonia, unspecified organism (2) Cavitary lesion of lung Current visit: Yes Status: Acute Category: Medical Code(s): J98.4 - Other disorders of lung (3) Abdominal pain Current visit: Yes Status: Acute Qualifiers: Abdominal location: generalized Qualified Code(s): R10.84 - Generalized abdominal pain Category: Medical Code(s): R10.9 - Unspecified abdominal pain (4) Anemia Current visit: No Status: Chronic Category: Medical Code(s): D64.9 - Anemia, unspecified (5) Coronary arteriosclerosis Current visit: No Status: Chronic Category: Medical Code(s): I25.10 - Atherosclerotic heart disease of [place] coronary artery without angina pectoris (6) Hyperlipidemia Current visit: No Status: Chronic Qualifiers: Category: Medical Code(s): E78.5 - Hyperlipidemia, unspecified (7) Hypertensive heart disease Current visit: No Status: Chronic Qualifiers: Category: Medical Code(s): I11.9 - Hypertensive heart disease without heart failure (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
--- NOTE | 2018-03-22 14:51 | Discharge Summary ---
General - General Admission date: 03/17/18 Discharge date: 03/22/18 HPI HPI: Mr. Ley is a 77yo male with a hx of a SBO in January when he was admitted. He states he has been constipated for the past few days and began having abdominal pain and vomited once. He was scared he might have another partial SBO, so he presented to the ER. A CXR and CT of the abdomen and pelvis revealed a bilateral pneumonia rather than a bowel obstruction. He does state he has had a dry cough for quite a while and has been getting more SOA. He will be admitted for hydration and IV abx. Hospital Course Hospital Course: The patient was started on IVF's and abx. He received magnesium citrate in the ER and had numerous loose BM's throughout his first night in the hospital. He did develop a more productive cough with yellow sputum. He was started on albuterol and mucinex. He had a CT of the chest as a CXR revealed a cavitation int he RUL. The CT showed a persistent cavitary lesion in the right upper chest. Fungal titers were drawn. 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 Radiology recommended a f/u CT of the abd/pelvis. The patient did improve and his lungs cleared. His stools normalized. He was able to get up and about. His sputum showed yeast and his blood cultures were normal. He was stable to be discharged home and will f/u in the office. Objective Vital signs: Temp Pulse Resp BP Pulse Ox 98.2 F 88 20 137/83 96 03/22/18 11:52 03/22/18 11:52 03/22/18 11:52 03/22/18 11:52 03/22/18 11:52 Narrative: - Constitutional Comments: Does not appear to feel well - *Routine HEENT Exam Head: Present: normocephalic, atraumatic Eye: Present: EOMI, PERRL ENT: Present: mucous membranes dry - *Routine Neck Exam Present: supple, full ROM - *Routine Respiratory Exam Present: crackles (bilateral bases but worse on the right) - *Routine Cardiovascular Exam Present: RRR (with frequent ectopics) - *Routine Abdominal Exam Present: soft, normoactive bowel sounds, tenderness (in the epigastric areas, small nodules palpable in the epigastric area and just above the umbilicus) - *Routine Extremities Exam Absent: edema - *Routine Skin Exam Present: pallor - *Routine Neurological Exam Present: alert, oriented X3 Results Labs on day of discharge: Preliminary micro results at discharge 03/17/18 18:30 Blood Culture - Preliminary Blood NO GROWTH AFTER 4 DAYS 03/17/18 18:15 Blood Culture - Preliminary Blood NO GROWTH AFTER 4 DAYS DS: Diagnosis - Discharge Diagnosis (1) Pneumonia Status: Acute (2) Cavitary lesion of lung Status: Acute (3) Abdominal pain Status: Acute (4) Anemia Status: Chronic (5) Coronary arteriosclerosis Status: Chronic (6) Hyperlipidemia Status: Chronic (7) Hypertensive heart disease Status: Chronic (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 (9) Constipation Status: Acute Discharge Plan - Patient Discharge Instructions ACTIVITY: Continue current activity DIET: continue same diet Patient Instructions: Pneumonia-Adult, Dehydration, Acute Abdominal Pain, Anemia, High Blood Pressure, DI for Hypotension - Follow up Plan Follow up with: Tyra Werner MD [Primary Care Provider] - 1 week Disposition: Home, Self-[facility] Medications: Home Medications Medication Instructions Recorded Confirmed Type cholecalciferol (vitamin D3) 1,000 1,000 unit PO DAILY 12/18/17 03/17/18 History unit capsule ferrous gluconate 324 mg (36 mg 324 mg PO BID tab 12/18/17 03/17/18 History iron) tablet fluticasone 50 mcg/actuation nasal 50 mcg INTRANASAL DAILY 12/18/17 03/17/18 History spray,suspension hydroxychloroquine 200 mg tablet 200 mg PO DAILY 12/18/17 03/17/18 History leflunomide 20 mg tablet 20 mg PO DAILY 12/18/17 03/17/18 History loratadine 10 mg capsule 10 mg PO DAILY 12/18/17 03/17/18 History megestrol 400 mg/10 mL (10 mL) 800 mg PO DAILY ml 12/18/17 03/17/18 History oral suspension metoprolol succinate ER 100 mg 100 mg PO DAILY tab 12/18/17 03/17/18 History tablet,extended release 24 hr omeprazole 20 mg capsule,delayed 20 mg PO BID 12/18/17 03/17/18 History release pravastatin 40 mg tablet 40 mg PO HS 12/18/17 03/17/18 History terazosin 5 mg capsule 5 mg PO HS 12/18/17 03/17/18 History aspirin 81 mg tablet,delayed 81 mg PO DAILY 12/22/17 03/17/18 History release Finasteride [Proscar 5mg Tablet] 5 mg PO HS 02/04/18 03/17/18 History Metoclopramide HCl [Reglan 5mg 5 mg PO TIDP PRN 02/04/18 03/17/18 History Tablet] Montelukast Sodium [Montelukast 10 mg PO HS 02/04/18 03/17/18 History 10mg Tab] Potassium Chloride [Pot Chlor 20 20 meq PO DAILY 02/04/18 03/17/18 History mEq Tab] dilTIAZem HCl [Cartia Xt] 120 mg PO DAILY 02/04/18 03/17/18 History prednisone 5 mg tablet 5 mg PO DAILY 15 Days 03/15/18 03/17/18 History Prescriptions/Medication Reconciliation: New Cefdinir [Omnicef 300mg Capsule] 300 mg PO BID #20 cap Continue cholecalciferol (vitamin D3) 1,000 unit capsule 1,000 unit PO DAILY ferrous gluconate 324 mg (36 mg iron) tablet 324 mg PO BID tab fluticasone 50 mcg/actuation nasal spray,suspension 50 mcg INTRANASAL DAILY hydroxychloroquine 200 mg tablet 200 mg PO DAILY loratadine 10 mg capsule 10 mg PO DAILY megestrol 400 mg/10 mL (10 mL) oral suspension 800 mg PO DAILY ml metoprolol succinate ER 100 mg tablet,extended release 24 hr 100 mg PO DAILY tab omeprazole 20 mg capsule,delayed release 20 mg PO BID pravastatin 40 mg tablet 40 mg PO HS prednisone 5 mg tablet 5 mg PO DAILY 15 Days leflunomide 20 mg tablet 20 mg PO DAILY terazosin 5 mg capsule 5 mg PO HS aspirin 81 mg tablet,delayed release 81 mg PO DAILY Finasteride [Proscar 5mg Tablet] 5 mg PO HS dilTIAZem HCl [Cartia Xt] 120 mg PO DAILY Metoclopramide HCl [Reglan 5mg Tablet] 5 mg PO TIDP PRN PRN Reason: STOMACH Potassium Chloride [Pot Chlor 20 mEq Tab] 20 meq PO DAILY Montelukast Sodium [Montelukast 10mg Tab] 10 mg PO HS
== END 2018-03-22 13:05 | disposition home or self-care (01) ==
LOC: ICU 14:03 → ER 14:03 → OBSVTOIN 20:19 → ICU 20:20 → 2ND 03-19 18:43
PROVIDERS: ADMIT Family Medicine; ATTEND Family Medicine